=== PATIENT | male | born 1965 | race Caucasian/White ===

== ENCOUNTER 2018-01-23 23:56 | Emergency (ER) | payer OTHER ==
[2018-01-24] MEDS ORDERED: BABY ASPIRIN 81 MG CHEW PO ONE (00:10)
[2018-01-24] MEDS ORDERED: Nitrostat 0.4 MG (ED) SL ONE ×2 (00:10→01:25)
--- NOTE | 2018-01-24 00:10 | ERPHSYRPT ---
- History of Present Illness Time Seen by Provider: 01/24/18 00:07 Historian: patient, family Exam Limitations: no limitations Physician History: CABG pt with recent event in rehab and now CP tonight and right arm pain Timing/Duration: today Activities at Onset: activity Quality: pressure, throbbing, tightness Location: substernal Chest Pain Radiation: jaw, neck, arm Severity of Pain-Max: moderate Severity of Pain-Current: moderate Modifying Factors: Improves With: exertion Associated Symptoms: nausea, shortness of breath Prior Chest Pain/Cardiac Workup: heart attack, recently seen/treated, recent hospitalization Nitro Today/Relief: 0.4 mg x 1, provided by ED, no relief Aspirin Treatment Today: 81 mg x 4, provided by ED Allergies/Adverse Reactions: cephalexin [From Keflex] Allergy (Unknown, Verified 01/24/18 01:23) ciprofloxacin [From Cipro] Allergy (Unknown, Verified 01/24/18 01:23) fish oil Allergy (Unknown, Verified 01/24/18 01:23) lithium Allergy (Unknown, Verified 01/24/18 01:23) moxifloxacin [From Avelox] Allergy (Unknown, Verified 01/24/18 01:23) onion Allergy (Unknown, Verified 01/24/18 01:23) Sulfa (Sulfonamide Antibiotics) Allergy (Unknown, Verified 01/24/18 01:23) Home Medications: Alprazolam 0.5 mg [xanAX 0.5 MG] 1 tab PO TID PRN 01/24/18 [History] Aspirin [Aspir-Low] 1 tab PO DAILY 01/24/18 [History] Atorvastatin Calcium [Lipitor] 80 mg PO DAILY 01/24/18 [History] Clonidine HCl [Clonidine HCl] 1 tab PO HS 01/24/18 [History] Clopidogrel Bisulfate [Clopidogrel] 1 tab PO DAILY 01/24/18 [History] Enalapril Maleate 5 mg [Vasotec 5 MG] 1 tab PO BID 01/24/18 [History] Insulin Glargine,Hum.rec.anlog [Lantus Solostar] 30 units SQ HS 01/24/18 [ History] Insulin Glulisine [Apidra Solostar] 14 units SQ AC 01/24/18 [History] Metoprolol Succinate 100 mg [Toprol Xl 100 MG] 100 mg PO DAILY 01/24/18 [ History] Nitroglycerin [Nitroglycerin] 1 tab SL UD PRN 01/24/18 [History] Omeprazole 20 MG [Prilosec 20 mg] 1 cap PO DAILY 01/24/18 [History] Oxycodone/APAP 5 mg/325 mg [Percocet Tablet 5/325Mg] 1 tab PO DAILY [History] - Review of Systems Constitutional: No Fever, No Chills Eyes: No Symptoms Ears, Nose, & Throat: No Symptoms Respiratory: Dyspnea, No Cough Cardiac: Chest Pain, No Edema, No Syncope Abdominal/Gastrointestinal: No Abdominal Pain, No Nausea, No Vomiting, No Diarrhea Genitourinary Symptoms: No Dysuria Musculoskeletal: No Back Pain, No Neck Pain Skin: No Rash Neurological: No Dizziness, No Focal Weakness, No Sensory Changes Psychological: No Symptoms Endocrine: No Symptoms All Other Systems: Reviewed and Negative - Past Medical History Pertinent Past Medical History: Yes Cardiac History: Arrhythmia, Coronary Artery Disease, Myocardial Infarction ([place]) - Nursing Vital Signs Nursing Vital Signs: Initial Vital Signs Temperature 97.7 F 01/23/18 23:58 Pulse Rate 60 01/23/18 23:58 Respiratory Rate 17 01/23/18 23:58 Blood Pressure 145/89 01/23/18 23:58 O2 Sat by Pulse Oximetry 96 01/23/18 23:58 Pain Scale Pain Intensity 5 - Physical Exam General Appearance: no apparent distress, alert Eye Exam: PERRL/EOMI, eyes nml inspection Ears, Nose, Throat Exam: normal ENT inspection, moist mucous membranes Neck Exam: normal inspection, non-tender, supple, full range of motion Respiratory Exam: normal breath sounds, lungs clear, No respiratory distress Cardiovascular Exam: regular rate/rhythm, normal heart sounds Gastrointestinal/Abdomen Exam: soft, No tenderness, No mass Back Exam: normal inspection, No CVA tenderness, No vertebral tenderness Extremity Exam: normal inspection, normal range of motion Neurologic Exam: alert, oriented x 3, cooperative, normal mood/affect, sensation nml, No motor deficits Skin Exam: normal color, warm, dry - Course Nursing assessment & vital signs reviewed: Yes EKG Interpreted by Me: Sinus Rhythm, Sinus Ashok, NORMAL AXIS, Non-specific ST Changes - Radiology Exams Chest X-ray Interpretation: Reviewed by me, Other (prior cabg ; no significant infiltrates) Ordered Tests: Active Orders 24 hr Category Date Time Status Resident Assistant Cna STAT Care 01/24/18 00:11 Active EKG-ER Only STAT Care 01/24/18 00:10 Active IV Insertion STAT Care 01/24/18 00:10 Active Pulse Oximetry (ED) STAT Care 01/24/18 00:10 Active CHEST 1 VIEW (PORTABLE) Stat Exams 01/24/18 00:11 Taken CBC W DIFF Stat Lab 01/24/18 01:10 Completed CMP Stat Lab 01/24/18 01:10 Completed Lactic Acid Stat Lab 01/24/18 01:16 Completed Lactic Acid Stat Lab 01/24/18 04:16 Completed NT PRO BNP Stat Lab 01/24/18 01:10 Completed TROPONIN Q3H Lab 01/24/18 01:10 Completed TROPONIN Q3H Lab 01/24/18 03:40 Completed TROPONIN Q3H Lab 01/24/18 06:15 Ordered TROPONIN Q3H Lab 01/24/18 09:15 Ordered TROPONIN Q3H Lab 01/24/18 12:15 Ordered Medication Summary Generic Name Dose Route Start Last Admin Trade Name Freq PRN Reason Stop Dose Admin Sodium Chloride 1,000 mls @ 50 mls/hr 01/24/18 00:15 01/24/18 01:29 Sodium Chloride 0.9% 1000 Ml IV 02/23/18 00:14 50 mls/hr .Q20H ANG Administration Discontinued Medications Generic Name Dose Route Start Last Admin Trade Name Freq PRN Reason Stop Dose Admin Aspirin 324 mg 01/24/18 00:10 01/24/18 01:29 Baby Aspirin 81 Mg Chew PO 01/24/18 00:11 324 mg STAT ONE Administration Aspirin Confirm 01/24/18 01:25 Baby Aspirin 81 Mg Chew Administered 01/24/18 01:26 Dose 324 mg .ROUTE .STK-MED ONE Diphenhydramine HCl 25 mg 01/24/18 02:18 01/24/18 02:40 Benadryl 50 Mg/Ml IV 01/24/18 02:19 25 mg STAT ONE Administration Diphenhydramine HCl Confirm 01/24/18 02:35 Benadryl 50 Mg/Ml Administered 01/24/18 02:36 Dose 50 mg .ROUTE .STK-MED ONE Morphine Sulfate 8 mg 01/24/18 02:08 01/24/18 02:41 Morphine Sulfate 10 Mg/Ml IV 01/24/18 02:09 8 mg STAT ONE Administration Morphine Sulfate Confirm 01/24/18 02:35 Morphine Sulfate 4 Mg Inj Administered 01/24/18 02:36 Dose 8 mg .ROUTE .STK-MED ONE Nitroglycerin 0.4 mg 01/24/18 00:10 01/24/18 01:29 Nitrostat 0.4 Mg (Ed) SL 01/24/18 00:11 0.4 mg STAT ONE Administration Nitroglycerin Confirm 01/24/18 01:25 Nitrostat 0.4 Mg (Ed) Administered 01/24/18 01:26 Dose 0.4 mg SL .STK-MED ONE Ondansetron HCl 4 mg 01/24/18 02:18 01/24/18 02:41 Zofran 4 Mg/2 Ml Vial IV 01/24/18 02:19 4 mg STAT ONE Administration Ondansetron HCl Confirm 01/24/18 02:35 Zofran 4 Mg/2 Ml Vial Administered 01/24/18 02:36 Dose 4 mg .ROUTE .STK-MED ONE Lab/Rad Data: Laboratory Result Diagrams 01/24/18 01:10 01/24/18 01:10 Laboratory Results 01/24/18 01/24/18 01/24/18 Range/Units 04:16 03:40 01:16 WBC (4.0-10.5) K/mm3 RBC (4.1-5.6) M/mm3 Hgb (12.5-18.0) gm/dl Hct (42-50) % MCV (78-100) fl MCH (26-32) pg MCHC (32-36) g/dl RDW (11.5-14.0) % Plt Count (150-450) K/mm3 MPV (6-9.5) fl Gran % (36.0-66.0) % Lymphocytes % (24.0-44.0) % Monocytes % (0.0-12.0) % Eosinophils % (0.00-5.0) % Basophils % (0.0-0.4) % Basophils # (0-0.4) Sodium (137-145) mmol/L Potassium (3.5-5.1) mmol/L Chloride (98-107) mmol/L Carbon Dioxide (22-30) mmol/L Anion Gap (5-15) MEQ/L BUN (9-20) mg/dL Creatinine (0.66-1.25) mg/dL Estimated GFR ML/MIN Glucose (74-106) mg/dL Lactic Acid 1.2 2.1 H (0.4-2.0) Calcium (8.4-10.2) mg/dL Total Bilirubin (0.2-1.3) mg/dL AST (17-59) U/L ALT (0-50) U/L Alkaline Phosphatase (38-126) U/L Troponin I 0.077 H* (0.000-0.034) ng/mL NT-Pro-B Natriuret Pep (0-900) pg/mL Serum Total Protein (6.3-8.2) g/dL Albumin (3.5-5.0) g/dL 01/24/18 01/24/18 01/24/18 Range/Units 01:10 01:10 01:10 WBC 6.4 (4.0-10.5) K/mm3 RBC 4.16 (4.1-5.6) M/mm3 Hgb 11.9 L (12.5-18.0) gm/dl Hct 36.3 L (42-50) % MCV 87.3 (78-100) fl MCH 28.6 (26-32) pg MCHC 32.8 (32-36) g/dl RDW 12.4 (11.5-14.0) % Plt Count 210 (150-450) K/mm3 MPV 10.0 H (6-9.5) fl Gran % 53.1 (36.0-66.0) % Lymphocytes % 34.5 (24.0-44.0) % Monocytes % 9.1 (0.0-12.0) % Eosinophils % 3.0 (0.00-5.0) % Basophils % 0.3 (0.0-0.4) % Basophils # 0.02 (0-0.4) Sodium 141 (137-145) mmol/L Potassium 4.2 (3.5-5.1) mmol/L Chloride 104 (98-107) mmol/L Carbon Dioxide 27 (22-30) mmol/L Anion Gap 14.3 (5-15) MEQ/L BUN 14 (9-20) mg/dL Creatinine 1.14 (0.66-1.25) mg/dL Estimated GFR > 60 ML/MIN Glucose 324 H (74-106) mg/dL Lactic Acid (0.4-2.0) Calcium 9.2 (8.4-10.2) mg/dL Total Bilirubin 0.20 (0.2-1.3) mg/dL AST 13 L (17-59) U/L ALT 20 (0-50) U/L Alkaline Phosphatase 75 (38-126) U/L Troponin I < 0.012 (0.000-0.034) ng/mL NT-Pro-B Natriuret Pep 545 (0-900) pg/mL Serum Total Protein 6.9 (6.3-8.2) g/dL Albumin 3.7 (3.5-5.0) g/dL - Progress Progress: improved, re-examined Air Movement: good Progress Note: 01/24/18 04:40 pt was declined by [facility] due to being full; [facility] called back then , but more time was lost since they called during a procedure on another pt; recalled [facility] transfer center to request expedite since pt now has positive trops; 01/24/18 04:55 Dr aleman at [facility] accepted pt; and is aware of positive trops Blood Culture(s) Obtained: No Antibiotics given: No Discussed with : Other (dr aleman [facility]) Will see patient in: hospital (full admit) Counseled pt/family regarding: lab results, diagnosis, need for follow-up, rad results - Departure Time of Disposition: 04:55 Departure Disposition: Transfer Clinical Impression: Non-STEMI (non-ST elevated myocardial infarction) Condition: Good Critical Care Time: No Referrals: MAGEN WAKEFIELD MD [Primary Care Provider] -
[2018-01-24] MEDS ORDERED: Sodium Chloride 0.9% 1000 ML 1,000 ML IV SCH (00:15)
[2018-01-24] MEDS ORDERED: BABY ASPIRIN 81 MG CHEW ONE (01:25)
[2018-01-24] MEDS ORDERED: Sodium Chloride 0.9% 1000 ML 1,000 ML ONE (01:26)
[2018-01-24 01:27] LABS: Lactic Acid 2.1 (0.4-2.0)
[2018-01-24 01:36] LABS: BASOPHIL % 0.3 % (0.0-0.4); Basophil (Absolute #) 0.02 (0-0.4); Eosinophil (Absolute #) 0.19 (0-0.5); Granulocyte Absolute (ANC) 3.37 (1.4-6.9); Granulocytes % 53.1 % (36.0-66.0); Hematocrit 36.3 % (42-50); Hemoglobin 11.9 gm/dl (12.5-18.0); Lymphocyte (Absolute #) 2.19 (1.0-4.6); Lymphocytes % 34.5 % (24.0-44.0); Mean Cell Volume 87.3 fl (78-100); Mean Corpuscular Hemoglobin 28.6 pg (26-32); Mean Corpuscular Hgb Concent. 32.8 g/dl (32-36); Monocyte (Absolute #) 0.58 (0.0-1.3); Monocytes % 9.1 % (0.0-12.0); Platelet Count 210 K/mm3 (150-450); Red Blood Count 4.16 M/mm3 (4.1-5.6); Red Cell Distribution Width 12.4 % (11.5-14.0); White Blood Count 6.4 K/mm3 (4.0-10.5)
[2018-01-24 02:00] LABS: ALBUMIN 3.7 g/dL (3.5-5.0); ALKALINE PHOSPHATASE 75 U/L (38-126); ANION GAP 14.3 MEQ/L (5-15); BLOOD UREA NITROGEN 14 mg/dL (9-20); CHLORIDE 104 mmol/L (98-107); Calcium 9.2 mg/dL (8.4-10.2); Carbon Dioxide 27 mmol/L (22-30); Creatinine 1 1.14 mg/dL (0.66-1.25); Glucose 324 mg/dL (74-106); Potassium 4.2 mmol/L (3.5-5.1); SGOT/AST 13 U/L (17-59); SGPT/ALT 20 U/L (0-50); SODIUM 141 mmol/L (137-145); Total Protein 6.9 g/dL (6.3-8.2)
[2018-01-24 02:07] LABS: NT PRO BNP 545 pg/mL (0-900)
[2018-01-24] MEDS ORDERED: MORPHINE SULFATE 10 MG/ML IV ONE (02:08)
[2018-01-24] MEDS ORDERED: BENADRYL 50 MG/ML IV ONE (02:18)
[2018-01-24] MEDS ORDERED: Zofran 4 MG/2 ML VIAL IV ONE (02:18)
[2018-01-24] MEDS ORDERED: Zofran 4 MG/2 ML VIAL ONE (02:35)
[2018-01-24] MEDS ORDERED: MORPHINE SULFATE 4 MG INJ ONE (02:35)
[2018-01-24] MEDS ORDERED: BENADRYL 50 MG/ML ONE (02:35)
[2018-01-24 08:05] VITALS: BP 102/68; PULSE 52; O2SAT 98
--- NOTE | 2018-01-24 10:00 | XRAY ---
Indication: Chest pain. Comparison: None Portable chest demonstrates left hilar irregular opacity partially obscured by cardiac silhouette. Heart is not enlarged and demonstrates previous CABG surgery. Left midlung peripheral fibrosis/scarring. Right lung clear. Bony thorax intact with mild spinal degenerative changes. Impression: Left hilar irregular opacity either postoperative versus mass. Comparison studies would be of benefit. If not available, CT chest with contrast exam may yield further information.
== END 2018-01-24 08:00 | disposition short-term general hospital (02) ==
LOC: ED 23:56
DX: I21.4 Non-ST elevation (NSTEMI) myocardial infarction (principal); Z79.899 Other long term (current) drug therapy; Z95.1 Presence of aortocoronary bypass graft; I25.2 Old myocardial infarction
CPT/HCPCS: 36000; 36415; 71045; 80053; 83605; 83880; 84484; 85025; 93005; 93041; 96360; 96374; 96375; 99285; J1200; J2270; J2405; A9270-GY

== ENCOUNTER 2018-06-20 20:41 | Emergency (ER) | payer OTHER ==
--- NOTE | 2018-06-20 20:56 | ERPHSYRPT ---
- History of Present Illness Time Seen by Provider: 06/20/18 20:55 Source: patient, family Physician History: 53 y/ morbidly obese, diabetic white male with sig cardiac hx including 9 cardiac stents and a 4 vessel cabg presents with soa. pt denies cp. pt feels his sx of soa has been worsening over a few weeks. he started brilenta a month ago and since then his sx began. sx worsening over last week. pt denies abd pain , denies n/v/d Timing/Duration: week(s) (approx 3 weeks) Severity of Dyspnea-Max: moderate Severity of Dyspnea-Current: mild Possible Cause: occasional episodes Modifying Factors: Improves With: activity (worsens) Associated Symptoms: intermittent, No anxiety, No cough, No chest pain/ discomfort, No lightheadedness, No wheezing, No weakness, No dizziness, No heaviness Allergies/Adverse Reactions: Fish Containing Products Allergy (Severe, Verified 06/20/18 21:06) Shortness of Breath fish protein causes swelling and SOB moxifloxacin HCl [From Avelox] Allergy (Intermediate, Verified 06/20/18 21:06) Hives cephalexin [From Keflex] Allergy (Unknown, Verified 06/20/18 21:06) ciprofloxacin [From Cipro] Allergy (Unknown, Verified 06/20/18 21:06) fish oil Allergy (Unknown, Verified 06/20/18 21:06) lithium Allergy (Unknown, Verified 06/20/18 21:06) moxifloxacin [From Avelox] Allergy (Unknown, Verified 06/20/18 21:06) onion Allergy (Unknown, Verified 06/20/18 21:06) Sulfa (Sulfonamide Antibiotics) Allergy (Unknown, Verified 06/20/18 21:06) Home Medications: Aspirin 81 mg PO DAILY 10/28/17 [History] Atorvastatin Calcium [Lipitor] 80 mg PO DAILY 10/28/17 [History] Clonidine HCl 0.1 mg [Catapres 0.1 MG] 0.2 mg PO HS 10/28/17 [History] Enalapril Maleate [Vasotec] 10 mg PO BID 10/28/17 [History] Insulin Glargine,Hum.rec.anlog [Lantus] 30 unit SQ HS 10/28/17 [History] Nitroglycerin 0.4 mg Tablet [Nitrostat 0.4 MG Tablet] 0.4 mg SL UD [History] Insulin Glulisine [Apidra Solostar] 14 - 17 units SQ TID 01/24/18 [History] Metoprolol Succinate 100 mg [Toprol Xl 100 MG] 50 mg PO DAILY 01/24/18 [ History] Oxycodone/APAP 5 mg/325 mg [Percocet Tablet 5/325Mg] 1 tab PO BID 01/24/18 [History] Amlodipine Besylate [Norvasc] 5 mg PO DAILY 03/28/18 [History] Ezetimibe 10 mg [Zetia 10 MG] 10 mg PO DAILY 03/28/18 [History] Omeprazole 20 MG [Prilosec 20 mg] 20 mg PO BID 03/28/18 [History] Ranolazine 500 MG [Ranexa 500 MG] 500 mg PO BID 03/28/18 [History] Atorvastatin Calcium [Lipitor] 80 mg PO DAILY 06/20/18 [History] Clonazepam 0.5 mg PO QAM 06/20/18 [History] Isosorbide Mononitrate 60 mg [Imdur 60MG] 60 mg PO DAILY 06/20/18 [History] Ticagrelor [Brilinta] 90 mg PO BID 06/20/18 [History] Hx Tetanus, Diphtheria Vaccination/Date Given: (2010) Hx Influenza Vaccination/Date Given: No Hx Pneumococcal Vaccination/Date Given: Yes - Review of Systems Constitutional: No Symptoms Eyes: No Symptoms, No Discharge, No Eye Pain, No Photophobia Ears, Nose, & Throat: No Symptoms, No Ear Pain Respiratory: Dyspnea, No Cough, No Stridor, No Wheezing Cardiac: No Chest Pain, No Palpitations, No Syncope Abdominal/Gastrointestinal: No Symptoms, Abdominal Pain, Nausea, Vomiting, Diarrhea Genitourinary Symptoms: No Symptoms, No Dysuria, No Frequency, No Hematuria Musculoskeletal: No Symptoms, Fall, Injury (right hip. xray performed earlier today. neg for acute pathology), No Arthralgias Skin: No Symptoms Neurological: No Symptoms, No Dizziness, No Headache Psychological: No Symptoms, No Alcohol Abuse, No Drug Abuse, No Anxiety, No Depression Endocrine: No Symptoms Hematologic/Lymphatic: No Symptoms Immunological/Allergic: No Symptoms All Other Systems: Reviewed and Negative - Past Medical History Pertinent Past Medical History: Yes Neurological History: Migraines ENT History: Macular Degeneration Cardiac History: Angina, Arrhythmia, Coronary Artery Disease, Myocardial Infarction ([place]), High Cholesterol, Hypertension Respiratory History: Sleep Apnea, COPD, Asthma, Bronchitis Endocrine Medical History: Diabetes Type II, Liver Disease Musculoskeletal History: Osteoarthritis, Degenerative Disk Disease, Fibromyalgia GI Medical History: Diverticulitis, Ulcer, GERD, Pancreatitis, Gallbladder Disease History: No Pertinent History Psycho-Social History: No Pertinent History Male Reproductive Disorders: No Pertinent History Other Medical History: fibromyalgia - Past Surgical History Past Surgical History: Yes Neuro Surgical History: No Pertinent History Cardiac: CABG, Cardiac Stent, Cardiac Catheterization Respiratory: Other Gastrointestinal: No Pertinent History Genitourinary: No Pertinent History Musculoskeletal: Orthopedic Surgery, Amputation Male Surgical History: No Pertinent History Other Surgical History: Rt knee, left ankle reconstructed - Social History Smoking Status: Former smoker How long have you smoked: 20 years Exposure to second hand smoke: Yes Alcohol Use: Socially Drug Use: none Patient Lives Alone: No Significant Family History: no pertinent family hx - Nursing Vital Signs Nursing Vital Signs: Initial Vital Signs Temperature 97.5 F 06/20/18 20:47 Pulse Rate 56 L 06/20/18 20:47 Respiratory Rate 18 06/20/18 20:47 Blood Pressure 110/72 06/20/18 20:47 O2 Sat by Pulse Oximetry 97 06/20/18 20:47 Pain Scale Pain Intensity 0 - Physical Exam General Appearance: mild distress, alert Eye Exam: PERRL/EOMI, No eyes nml inspection Ears, Nose, Throat Exam: hearing grossly normal, normal ENT inspection Neck Exam: normal inspection, non-tender, supple, full range of motion Respiratory Exam: normal breath sounds, lungs clear, airway intact, No chest tenderness, No respiratory distress, No diminished breath sounds, No accessory muscle use, No rhonchi, No wheezing, No stridor Cardiovascular/Chest Exam: normal heart sounds, regular rate/rhythm, normal peripheral pulses Abdominal/Gastrointestinal Exam: soft, normal bowel sounds, hernia (reducible umbilical), No tenderness, No guarding, No rebound Rectal Exam: not done Extremity Exam: non-tender, normal range of motion, normal inspection, pelvis stable Neurologic Exam: alert, oriented x 3, cooperative, medical assistant prn II-XII nml as tested, normal mood/affect Skin Exam: normal color, warm, dry Lymphatic Exam: No adenopathy SpO2 Interpretation: normal Oxygen Delivery: Room Air - Course Nursing assessment & vital signs reviewed: Yes EKG Interpreted by Me: RATE, Sinus Rhythm, NORMAL INTERVALS, NORMAL QRS, NORMAL ST-T, Other (s1/qiii axis) Ordered Tests: Active Orders 24 hr Category Date Time Status EKG-ER Only STAT Care 06/20/18 20:56 Active IV Insertion STAT Care 06/20/18 20:56 Active CHEST 1 VIEW (PORTABLE) Stat Exams 06/20/18 20:56 Taken CBC W DIFF Stat Lab 06/20/18 21:00 Completed CMP Stat Lab 06/20/18 21:00 Received D-DIMER QUANTITATION Stat Lab 06/20/18 21:00 Received NT PRO BNP Stat Lab 06/20/18 21:00 Received PROTIME WITH INR Stat Lab 06/20/18 21:00 Received TROPONIN Q3H Lab 06/20/18 21:00 Received TROPONIN Q3H Lab 06/21/18 00:00 Ordered TROPONIN Q3H Lab 06/21/18 03:00 Ordered TROPONIN Q3H Lab 06/21/18 06:00 Ordered TROPONIN Q3H Lab 06/21/18 09:00 Ordered Lab/Rad Data: Laboratory Result Diagrams 06/20/18 21:00 Laboratory Results 06/20/18 Range/Units 21:00 WBC 7.3 (4.0-10.5) K/mm3 RBC 4.11 (4.1-5.6) M/mm3 Hgb 12.4 L (12.5-18.0) gm/dl Hct 36.0 L (42-50) % MCV 87.6 (78-100) fl MCH 30.1 (26-32) pg MCHC 34.4 (32-36) g/dl RDW 13.5 (11.5-14.0) % Plt Count 228 (150-450) K/mm3 MPV 9.4 (6-9.5) fl Gran % 52.1 (36.0-66.0) % Eos # (Auto) 0.17 (0-0.5) Absolute Lymphs (auto) 2.65 (1.0-4.6) Absolute Monos (auto) 0.64 (0.0-1.3) Lymphocytes % 36.5 (24.0-44.0) % Monocytes % 8.8 (0.0-12.0) % Eosinophils % 2.3 (0.00-5.0) % Basophils % 0.3 (0.0-0.4) % Absolute Granulocytes 3.78 (1.4-6.9) Basophils # 0.02 (0-0.4) - Progress Progress: improved, re-examined Air Movement: good Progress Note: 06/20/18 21:48 pt has no cp. i reviewed all lab, ekg and cxr results with him. cxr-no acute process; pt with cardiomegaly Blood Culture(s) Obtained: No Antibiotics given: No Counseled pt/family regarding: lab results, diagnosis, need for follow-up, rad results - Departure Time of Disposition: 21:52 Departure Disposition: Home Clinical Impression: Shortness of breath, Medication adverse effect Condition: Stable Critical Care Time: No Referrals: MAGEN WAKEFIELD MD [Primary Care Provider] - Additional Instructions: hold brilinta until you discuss with your prescribing physician. take your other meds as prescribed. return to ER if symptoms worsen
[2018-06-20 21:05] VITALS: BP 110/72; PULSE 56; O2SAT 97
[2018-06-20 21:07] LABS: BASOPHIL % 0.3 % (0.0-0.4); Basophil (Absolute #) 0.02 (0-0.4); Eosinophil % 2.3 % (0.00-5.0); Eosinophil (Absolute #) 0.17 (0-0.5); Granulocyte Absolute (ANC) 3.78 (1.4-6.9); Granulocytes % 52.1 % (36.0-66.0); Hemoglobin 12.4 gm/dl (12.5-18.0); Lymphocyte (Absolute #) 2.65 (1.0-4.6); Lymphocytes % 36.5 % (24.0-44.0); Mean Cell Volume 87.6 fl (78-100); Mean Corpuscular Hgb Concent. 34.4 g/dl (32-36); Mean Platelet Volume 9.4 fl (6-9.5); Monocyte (Absolute #) 0.64 (0.0-1.3); Monocytes % 8.8 % (0.0-12.0); Platelet Count 228 K/mm3 (150-450); Red Blood Count 4.11 M/mm3 (4.1-5.6); Red Cell Distribution Width 13.5 % (11.5-14.0); White Blood Count 7.3 K/mm3 (4.0-10.5)
[2018-06-20 21:10] LABS: Mean Corpuscular Hemoglobin 30.1 pg (26-32)
[2018-06-20 21:26] LABS: INR 0.99 (0.8-3.0)
[2018-06-20 21:39] LABS: ALBUMIN 4.1 g/dL (3.5-5.0); ALKALINE PHOSPHATASE 78 U/L (38-126); ANION GAP 14.4 MEQ/L (5-15); BLOOD UREA NITROGEN 21 mg/dL (9-20); CHLORIDE 104 mmol/L (98-107); Calcium 8.8 mg/dL (8.4-10.2); Carbon Dioxide 23 mmol/L (22-30); Glucose 308 mg/dL (74-106); NT PRO BNP 117 pg/mL (0-900); Potassium 4.5 mmol/L (3.5-5.1); SGOT/AST 16 U/L (17-59); SGPT/ALT 22 U/L (0-50); SODIUM 137 mmol/L (137-145); Total Protein 6.8 g/dL (6.3-8.2)
[2018-06-20] MEDS ORDERED: MORPHINE SULFATE 2 MG INJ ONE (22:01)
[2018-06-20] MEDS: MORPHINE SULFATE 2 MG INJ IV ONE (22:05)
--- NOTE | 2018-06-21 08:41 | XRAY ---
Indication: Short of breath. Comparison: January 24, 2018. Portable apical lordotic chest again demonstrates left perihilar irregular opacity. There is right mid peripheral nodule partially obscured previously by monitoring clip/lead but grossly unchanged compared to older exam of April 19, 2014 and favored to be benign given stability over the years. Remaining lungs clear. Heart is not enlarged again demonstrating CABG surgery. Bony thorax intact again with mild spinal degenerative changes. Impression: Stable left hilar irregular opacity again either postoperative versus mass. Again CT chest may yield further information if clinically warranted. Stable benign right mid lung nodule.
== END 2018-06-20 22:06 | disposition home or self-care (01) ==
LOC: ED 20:41
DX: R06.02 Shortness of breath (principal); T45.515A Adverse effect of anticoagulants, initial encounter; I51.7 Cardiomegaly; Z79.82 Long term (current) use of aspirin; Z79.899 Other long term (current) drug therapy; E11.9 Type 2 diabetes mellitus without complications; Z79.4 Long term (current) use of insulin
CPT/HCPCS: 36000; 36415; 71045; 73502; 80053; 83880; 84484; 85025; 85379; 85610; 93005; 96374; 99284; J2270

== ENCOUNTER 2018-08-29 18:54 | Observation (INO) | payer OTHER ==
[2018-08-29 19:31] LABS: BASOPHIL % 0.3 % (0.0-0.4); Basophil (Absolute #) 0.02 (0-0.4); Eosinophil % 2.8 % (0.00-5.0); Eosinophil (Absolute #) 0.19 (0-0.5); Granulocyte Absolute (ANC) 3.42 (1.4-6.9); Granulocytes % 49.8 % (36.0-66.0); Hematocrit 37.6 % (42-50); Hemoglobin 12.6 gm/dl (12.5-18.0); Lymphocyte (Absolute #) 2.55 (1.0-4.6); Lymphocytes % 37.1 % (24.0-44.0); Mean Cell Volume 88.5 fl (78-100); Mean Corpuscular Hemoglobin 29.6 pg (26-32); Mean Corpuscular Hgb Concent. 33.5 g/dl (32-36); Mean Platelet Volume 9.6 fl (6-9.5); Monocyte (Absolute #) 0.69 (0.0-1.3); Platelet Count 206 K/mm3 (150-450); Red Blood Count 4.25 M/mm3 (4.1-5.6); Red Cell Distribution Width 12.5 % (11.5-14.0); White Blood Count 6.9 K/mm3 (4.0-10.5)
--- NOTE | 2018-08-29 19:34 | ERPHSYRPT ---
- History of Present Illness Time Seen by Provider: 08/29/18 19:21 Historian: patient Exam Limitations: no limitations Patient Subjective Stated Complaint: pt here for chest pressure today with nausea,vomiting off and on, fever for a week. he states he has beren under a lot of stress lately Triage Nursing Assessment: pt alert, resp easy, skin w/d/p. no edema, chest clear, cough - productive clear. and soft, Physician History: This is a 53-year-old white male with history of migraines, macular degeneration , arrhythmia, coronary artery disease, myocardial infarction, hypothyroidism, high blood pressure, COPD, asthma, diabetes type 2, degenerative disc disease and fibromyalgia. Patient arrives with complaint of substernal chest pain described as a pressure occurring at 5:30 PM radiating down his left arm associated nausea, patient states she has had similar symptoms off and on for a week he states that he's had a clear cough he's had a fever off-and-on he was seen by his family doctor today Patient states that he took 81 mg of aspirin this morning also Plavix he states he has been instructed by his family doctor that he is not to take additional aspirin if he has chest pain when he presents to emergency room. Patient did state that he took one nitroglycerin today just prior to arrival Past medical history includes migraines, macular degeneration, arrhythmia, coronary artery disease, myocardial infarction, hypothyroidism, high blood pressure, sleep apnea, COPD, asthma, bronchitis, diabetes type 2, liver disease , osteoarthritis, degenerative disc disease, fibromyalgia, diverticulitis, ulcers, GERD, pancreatitis, gallbladder disease Past surgical history includes cardiac stents, cardiac catheter, amputation, right knee and left ankle reconstruction Social history former smoker Timing/Duration: other (cough intermittent chest pain times one week substernal pressure nausea since 5:30) Quality: pressure Location: substernal Chest Pain Radiation: arm (left arm) Severity of Pain-Max: moderate Severity of Pain-Current: mild Modifying Factors: Improves With: other (patient took one nitroglycerine) Associated Symptoms: nausea, shortness of breath, cough, fever (Fever off-and-on ), No vomiting, No palpitations, No hurts to breathe, No diaphoresis, No chills Prior Chest Pain/Cardiac Workup: cardiac cath Nitro Today/Relief: 0.4 mg x 1 Aspirin Treatment Today: 81 mg x 1 (patient states he is told by his giant tire repairer he is not to take more aspirin when he presents to the emergency room) Allergies/Adverse Reactions: Fish Containing Products Allergy (Severe, Verified 06/20/18 21:06) Shortness of Breath fish protein causes swelling and SOB moxifloxacin HCl [From Avelox] Allergy (Intermediate, Verified 06/20/18 21:06) Hives cephalexin [From Keflex] Allergy (Unknown, Verified 06/20/18 21:06) ciprofloxacin [From Cipro] Allergy (Unknown, Verified 06/20/18 21:06) fish oil Allergy (Unknown, Verified 06/20/18 21:06) lithium Allergy (Unknown, Verified 06/20/18 21:06) moxifloxacin [From Avelox] Allergy (Unknown, Verified 06/20/18 21:06) onion Allergy (Unknown, Verified 06/20/18 21:06) Sulfa (Sulfonamide Antibiotics) Allergy (Unknown, Verified 06/20/18 21:06) Home Medications: Aspirin 81 mg PO DAILY 10/28/17 [History] Clonidine HCl 0.1 mg [Catapres 0.1 MG] 0.2 mg PO HS 10/28/17 [History] Enalapril Maleate [Vasotec] 10 mg PO BID 10/28/17 [History] Insulin Glargine,Hum.rec.anlog [Lantus] 30 unit SQ HS 10/28/17 [History] Nitroglycerin 0.4 mg Tablet [Nitrostat 0.4 MG Tablet] 0.4 mg SL UD [History] Insulin Glulisine [Apidra Solostar] 14 - 17 units SQ TID 01/24/18 [History] Metoprolol Succinate 100 mg [Toprol Xl 100 MG] 50 mg PO DAILY 01/24/18 [ History] Oxycodone/APAP 5 mg/325 mg [Percocet Tablet 5/325Mg] 1 tab PO BID 01/24/18 [History] Ezetimibe 10 mg [Zetia 10 MG] 10 mg PO DAILY 03/28/18 [History] Omeprazole 20 MG [Prilosec 20 mg] 20 mg PO BID 03/28/18 [History] Ranolazine 500 MG [Ranexa 500 MG] 500 mg PO BID 03/28/18 [History] Atorvastatin Calcium [Lipitor] 80 mg PO DAILY 06/20/18 [History] Clonazepam 0.5 mg PO QAM 06/20/18 [History] Isosorbide Mononitrate 60 mg [Imdur 60MG] 60 mg PO DAILY 06/20/18 [History] Hx Tetanus, Diphtheria Vaccination/Date Given: (2010) Hx Influenza Vaccination/Date Given: No Hx Pneumococcal Vaccination/Date Given: No Immunizations Up to Date: Yes - Review of Systems Constitutional: No Fever, No Chills Eyes: No Symptoms Ears, Nose, & Throat: No Symptoms Respiratory: Cough, Dyspnea, No Wheezing Cardiac: Chest Pain Abdominal/Gastrointestinal: Nausea, No Abdominal Pain, No Vomiting, No Diarrhea Genitourinary Symptoms: No Dysuria Musculoskeletal: No Back Pain, No Neck Pain Skin: No Rash Neurological: No Dizziness, No Focal Weakness, No Sensory Changes Psychological: No Symptoms Endocrine: No Symptoms All Other Systems: Reviewed and Negative - Past Medical History Pertinent Past Medical History: Yes Neurological History: Migraines ENT History: Macular Degeneration Cardiac History: Angina, Arrhythmia, Coronary Artery Disease, Myocardial Infarction ([place]), High Cholesterol, Hypertension Respiratory History: Sleep Apnea, COPD, Asthma, Bronchitis Endocrine Medical History: Diabetes Type II, Liver Disease Musculoskeletal History: Osteoarthritis, Degenerative Disk Disease, Fibromyalgia GI Medical History: Diverticulitis, Ulcer, GERD, Pancreatitis, Gallbladder Disease History: No Pertinent History Psycho-Social History: No Pertinent History Male Reproductive Disorders: No Pertinent History Other Medical History: fibromyalgia - Past Surgical History Past Surgical History: Yes Neuro Surgical History: No Pertinent History Cardiac: CABG, Cardiac Stent, Cardiac Catheterization Respiratory: Other Gastrointestinal: No Pertinent History Genitourinary: No Pertinent History Musculoskeletal: Orthopedic Surgery, Amputation Male Surgical History: No Pertinent History Other Surgical History: Rt knee, left ankle reconstructed - Social History Smoking Status: Current some day smoker How long have you smoked: 20 years Exposure to second hand smoke: Yes Alcohol Use: Socially Drug Use: none Patient Lives Alone: No Significant Family History: no pertinent family hx - Nursing Vital Signs Nursing Vital Signs: Initial Vital Signs Temperature 97.1 F 08/29/18 19:00 Pulse Rate 59 L 08/29/18 19:00 Respiratory Rate 18 08/29/18 19:00 Blood Pressure 163/93 08/29/18 19:00 O2 Sat by Pulse Oximetry 98 08/29/18 19:00 Pain Scale Pain Intensity 5 - Physical Exam General Appearance: no apparent distress, alert, obese Eye Exam: PERRL/EOMI, eyes nml inspection Ears, Nose, Throat Exam: normal ENT inspection, moist mucous membranes Neck Exam: normal inspection, non-tender, supple, full range of motion Respiratory Exam: normal breath sounds, lungs clear, No respiratory distress Cardiovascular Exam: regular rate/rhythm, normal heart sounds Gastrointestinal/Abdomen Exam: soft, No tenderness, No mass Back Exam: normal inspection, No CVA tenderness, No vertebral tenderness Extremity Exam: normal inspection, normal range of motion Neurologic Exam: alert, oriented x 3, cooperative, email specialist II-XII nml as tested, normal mood/affect, sensation nml, No motor deficits Skin Exam: normal color, warm, dry SpO2 Interpretation: normal (98%) SpO2: 98 Oxygen Delivery: Room Air - Course Nursing assessment & vital signs reviewed: Yes EKG Interpreted by Me: RATE (58 bpm), Other (EKG: Sinus rhythm, 58 bpm, axisSI/ QIII pattern, nonspecific ST and T-wave abnormalities, no acute changes as compared to June 20, 2018) Ordered Tests: Active Orders 24 hr Category Date Time Status Accucheck STAT Care 08/29/18 19:26 Active Industrial Methods Consultant STAT Care 08/29/18 19:25 Active EKG-ER Only STAT Care 08/29/18 19:25 Active Pulse Oximetry (ED) STAT Care 08/29/18 19:25 Active CHEST 1 VIEW (PORTABLE) Stat Exams 08/29/18 19:25 Taken AMYLASE Stat Lab 08/29/18 19:10 Completed CBC W DIFF Stat Lab 08/29/18 19:10 Completed CMP Stat Lab 08/29/18 19:10 Completed D-DIMER QUANTITATION Stat Lab 08/29/18 19:10 Completed LIPASE Stat Lab 08/29/18 19:10 Completed NT PRO BNP Stat Lab 08/29/18 19:10 Completed PROTIME WITH INR Stat Lab 08/29/18 19:10 Completed PTT Stat Lab 08/29/18 19:10 Completed TROPONIN Q3H Lab 08/29/18 19:10 Completed TROPONIN Q3H Lab 08/29/18 22:30 Ordered TROPONIN Q3H Lab 08/30/18 01:30 Ordered TROPONIN Q3H Lab 08/30/18 04:30 Ordered TROPONIN Q3H Lab 08/30/18 07:30 Ordered Lab/Rad Data: Laboratory Result Diagrams 08/29/18 19:10 08/29/18 19:10 Laboratory Results 08/29/18 08/29/18 08/29/18 Range/Units 19:10 19:10 19:10 WBC (4.0-10.5) K/mm3 RBC (4.1-5.6) M/mm3 Hgb (12.5-18.0) gm/dl Hct (42-50) % MCV (78-100) fl MCH (26-32) pg MCHC (32-36) g/dl RDW (11.5-14.0) % Plt Count (150-450) K/mm3 MPV (6-9.5) fl Gran % (36.0-66.0) % Eos # (Auto) (0-0.5) Absolute Lymphs (auto) (1.0-4.6) Absolute Monos (auto) (0.0-1.3) Lymphocytes % (24.0-44.0) % Monocytes % (0.0-12.0) % Eosinophils % (0.00-5.0) % Basophils % (0.0-0.4) % Absolute Granulocytes (1.4-6.9) Basophils # (0-0.4) PT 11.4 (8.83-12.87) SECONDS INR 0.98 (0.8-3.0) APTT 24.0 L (24.1-36.1) SECONDS D-Dimer 456 (215-500) ng/mL Sodium (137-145) mmol/L Potassium (3.5-5.1) mmol/L Chloride (98-107) mmol/L Carbon Dioxide (22-30) mmol/L Anion Gap (5-15) MEQ/L BUN (9-20) mg/dL Creatinine (0.66-1.25) mg/dL Estimated GFR ML/MIN Glucose (74-106) mg/dL Calcium (8.4-10.2) mg/dL Total Bilirubin (0.2-1.3) mg/dL AST (17-59) U/L ALT (0-50) U/L Alkaline Phosphatase (38-126) U/L Troponin I < 0.012 (0.000-0.034) ng/mL NT-Pro-B Natriuret Pep (0-900) pg/mL Serum Total Protein (6.3-8.2) g/dL Albumin (3.5-5.0) g/dL Amylase < 30 L (30-110) U/L Lipase 70 (23-300) U/L 08/29/18 08/29/18 Range/Units 19:10 19:10 WBC 6.9 (4.0-10.5) K/mm3 RBC 4.25 (4.1-5.6) M/mm3 Hgb 12.6 (12.5-18.0) gm/dl Hct 37.6 L (42-50) % MCV 88.5 (78-100) fl MCH 29.6 (26-32) pg MCHC 33.5 (32-36) g/dl RDW 12.5 (11.5-14.0) % Plt Count 206 (150-450) K/mm3 MPV 9.6 H (6-9.5) fl Gran % 49.8 (36.0-66.0) % Eos # (Auto) 0.19 (0-0.5) Absolute Lymphs (auto) 2.55 (1.0-4.6) Absolute Monos (auto) 0.69 (0.0-1.3) Lymphocytes % 37.1 (24.0-44.0) % Monocytes % 10.0 (0.0-12.0) % Eosinophils % 2.8 (0.00-5.0) % Basophils % 0.3 (0.0-0.4) % Absolute Granulocytes 3.42 (1.4-6.9) Basophils # 0.02 (0-0.4) PT (8.83-12.87) SECONDS INR (0.8-3.0) APTT (24.1-36.1) SECONDS D-Dimer (215-500) ng/mL Sodium 137 (137-145) mmol/L Potassium 4.4 (3.5-5.1) mmol/L Chloride 105 (98-107) mmol/L Carbon Dioxide 25 (22-30) mmol/L Anion Gap 12.0 (5-15) MEQ/L BUN 14 (9-20) mg/dL Creatinine 1.11 (0.66-1.25) mg/dL Estimated GFR > 60.0 ML/MIN Glucose 259 H (74-106) mg/dL Calcium 9.2 (8.4-10.2) mg/dL Total Bilirubin 0.20 (0.2-1.3) mg/dL AST 17 (17-59) U/L ALT 20 (0-50) U/L Alkaline Phosphatase 75 (38-126) U/L Troponin I (0.000-0.034) ng/mL NT-Pro-B Natriuret Pep 230 (0-900) pg/mL Serum Total Protein 6.7 (6.3-8.2) g/dL Albumin 3.8 (3.5-5.0) g/dL Amylase (30-110) U/L Lipase (23-300) U/L - Progress Progress: improved Air Movement: fair Progress Note: 08/29/18 20:5 08/29/18 20:59 53-year-old white male arrives with complaint of pain in his anterior chest radiating to his left arm symptoms since 5:30. Patient without acute changes on EKG labs or chest x-ray. Patient does not one aspirin at this time wants to stay here in the emergency room the second transfer tech. 08/29/18 21:49 Patient has no acute changes on his EKG labs are essentially normal troponin normal D dimer normal chest x-ray no acute changes. He does have some continuing intermittent anterior chest pain. I had considered placing the patient on nitroglycerin paste. I patient tells me he has been instructed by his giant tire repairer he is not to get additional aspirin he is already on aspirin and Plavix. The patient states he wants to stay at [place]. I've discussed the case with Dr. Uriarte he is okay with the placing the patient on observation with serial troponins and Accu-Cheks. He did ask that I discussed the case with the physician on-call for Dr. Klein.I discussed the case with Dr. Loredo he is agreeable to having the patient come in this hospital for observation and obtaining serial troponins. Will go ahead and write orders - Departure Time of Disposition: 21:51 Departure Disposition: Observation Clinical Impression: Chest pain Qualifiers: Chest pain type: unspecified Qualified Code(s): R07.9 - Chest pain, unspecified Condition: Fair Critical Care Time: No Referrals: MAGEN WAKEFIELD MD [Primary Care Provider] -
[2018-08-29 19:48] LABS: INR 0.98 (0.8-3.0)
[2018-08-29 19:52] LABS: AMYLASE < 30 U/L (30-110); LIPASE 70 U/L (23-300)
[2018-08-29 20:02] LABS: ALBUMIN 3.8 g/dL (3.5-5.0); ALKALINE PHOSPHATASE 75 U/L (38-126); BLOOD UREA NITROGEN 14 mg/dL (9-20); CHLORIDE 105 mmol/L (98-107); Calcium 9.2 mg/dL (8.4-10.2); Carbon Dioxide 25 mmol/L (22-30); Creatinine 1 1.11 mg/dL (0.66-1.25); Glucose 259 mg/dL (74-106); NT PRO BNP 230 pg/mL (0-900); Potassium 4.4 mmol/L (3.5-5.1); SGOT/AST 17 U/L (17-59); SGPT/ALT 20 U/L (0-50); SODIUM 137 mmol/L (137-145); Total Protein 6.7 g/dL (6.3-8.2)
[2018-08-29] MEDS ORDERED: NovoLOG Insulin SQ PRN (22:40)
[2018-08-29] MEDS ORDERED: TYLENOL 325 MG PO PRN (22:40)
[2018-08-29] MEDS ORDERED: PERCOCET TABLET 5/325MG PO ONE (22:42)
[2018-08-30] MEDS ORDERED: Lantus Insulin ONE (00:41)
[2018-08-30 05:32] LABS: BASOPHIL % 0.2 % (0.0-0.4); Basophil (Absolute #) 0.01 (0-0.4); Eosinophil % 2.4 % (0.00-5.0); Eosinophil (Absolute #) 0.15 (0-0.5); Granulocytes % 36.4 % (36.0-66.0); Hematocrit 37.4 % (42-50); Hemoglobin 12.5 gm/dl (12.5-18.0); Lymphocyte (Absolute #) 3.27 (1.0-4.6); Lymphocytes % 51.7 % (24.0-44.0); Mean Cell Volume 88.8 fl (78-100); Mean Corpuscular Hemoglobin 29.7 pg (26-32); Mean Corpuscular Hgb Concent. 33.4 g/dl (32-36); Mean Platelet Volume 9.9 fl (6-9.5); Monocyte (Absolute #) 0.59 (0.0-1.3); Monocytes % 9.3 % (0.0-12.0); Platelet Count 191 K/mm3 (150-450); Red Blood Count 4.21 M/mm3 (4.1-5.6); Red Cell Distribution Width 12.4 % (11.5-14.0); White Blood Count 6.3 K/mm3 (4.0-10.5)
[2018-08-30 05:33] LABS: ALBUMIN 3.3 g/dL (3.5-5.0); ALKALINE PHOSPHATASE 65 U/L (38-126); ANION GAP 10.6 MEQ/L (5-15); BLOOD UREA NITROGEN 13 mg/dL (9-20); CHLORIDE 103 mmol/L (98-107); Carbon Dioxide 28 mmol/L (22-30); Creatinine 1 0.95 mg/dL (0.66-1.25); Glucose 226 mg/dL (74-106); Potassium 4.2 mmol/L (3.5-5.1); SGOT/AST 13 U/L (17-59); SGPT/ALT 18 U/L (0-50); SODIUM 137 mmol/L (137-145); Total Protein 5.8 g/dL (6.3-8.2)
[2018-08-30 07:26] VITALS: O2SAT 98
--- NOTE | 2018-08-30 08:53 | XRAY ---
Indication: Chest pressure and shortness of breath. Comparison: June 20, 2018. Portable apical lordotic chest demonstrates stable benign right mid peripheral nodule. No focal infiltrate, consolidation, or large effusion. Heart is not enlarged again demonstrating CABG surgery. Bony thorax intact again with mild degenerative changes. Impression: Stable nonacute chest with chronic features.
[2018-08-30] MEDS ORDERED: Sodium Chloride 0.9% 10 ML FLUSH Syringe IV PRN (09:13)
--- NOTE | 2018-08-30 09:25 | PCM.SSS ---
History of Present Illness - Chief Complaint Chief Complaint: chest pain History of Present Illness: is a 53 year old male with no local physician who arrived to the ER last evening complaining of chest pain. pain began at 5:30pm yesterday at rest that was substernal and radiated down his left arm. has had a cough and sinus congestion, was seen by his primary [employer] yesterday and given doxycycline, states he had some fever last week but none currently. ND has been ruled out, no chest pain today. has extensive hx of cad with multiple stents and CABG 11/2017. - Review of Systems Constitutional: No Fever, No Chills Respiratory: Cough, No Short Of Breath, No Wheezing Cardiac: Chest Pain, No Edema, No Palpitations, No Syncope, No Orthopnea, No PND Abdominal/Gastrointestinal: No Abdominal Pain, No Nausea, No Vomiting, No Diarrhea Genitourinary Symptoms: No Dysuria Skin: No Rash All Other Systems: Reviewed and Negative Medications & Allergies Home Medications: Home Medication List Aspirin 81 mg PO DAILY 10/28/17 [History Confirmed 08/29/18] Clonidine HCl 0.1 mg [Catapres 0.1 MG] 0.2 mg PO EVENING MEAL 10/28/17 [ History Confirmed 08/29/18] Enalapril Maleate [Vasotec] 10 mg PO BID 10/28/17 [History Confirmed 08/29/18] Insulin Glargine,Hum.rec.anlog [Lantus] 30 unit SQ HS 10/28/17 [History Confirmed 08/29/18] Nitroglycerin 0.4 mg Tablet [Nitrostat 0.4 MG Tablet] 0.4 mg SL UD [History Confirmed 08/29/18] Insulin Glulisine [Apidra Solostar] 14 - 17 units SQ TID 01/24/18 [History Confirmed 08/29/18] Metoprolol Succinate 100 mg [Toprol Xl 100 MG] 50 mg PO DAILY 01/24/18 [ History Confirmed 08/29/18] Oxycodone/APAP 5 mg/325 mg [Percocet Tablet 5/325Mg] 1 tab PO BID 01/24/18 [History Confirmed 08/29/18] Ezetimibe 10 mg [Zetia 10 MG] 10 mg PO DAILY 03/28/18 [History Confirmed ] Omeprazole 20 MG [Prilosec 20 mg] 20 mg PO BID 03/28/18 [History Confirmed 08/29] Ranolazine 500 MG [Ranexa 500 MG] 500 mg PO BID 03/28/18 [History Confirmed 08/29/18] Atorvastatin Calcium [Lipitor] 80 mg PO DAILY 06/20/18 [History Confirmed ] Clonazepam 0.5 mg PO QAM 06/20/18 [History Confirmed 08/29/18] Isosorbide Mononitrate 60 mg [Imdur 60MG] 60 mg PO DAILY 06/20/18 [History Confirmed 08/29/18] Clonazepam 1 mg PO HS 08/29/18 [History Confirmed 08/29/18] Allergies/Adverse Reactions: Allergies Allergy/AdvReac Type Severity Reaction Status Date / Time Fish Containing Products Allergy Severe Shortness Verified 06/20/18 21:06 of Breath moxifloxacin HCl Allergy Intermediate Hives Verified 06/20/18 21:06 [From Avelox] cephalexin [From Keflex] Allergy Unknown Verified 06/20/18 21:06 ciprofloxacin [From Cipro] Allergy Unknown Verified 06/20/18 21:06 fish oil Allergy Unknown Verified 06/20/18 21:06 lithium Allergy Unknown Verified 06/20/18 21:06 moxifloxacin [From Avelox] Allergy Unknown Verified 06/20/18 21:06 onion Allergy Unknown Verified 06/20/18 21:06 Sulfa (Sulfonamide Allergy Unknown Verified 06/20/18 21:06 Antibiotics) - Past Medical History Past Medical History: Yes Neurological History: Migraines ENT History: Macular Degeneration Cardiac History: Angina, Arrhythmia, Coronary Artery Disease, Myocardial Infarction (ND), High Cholesterol, Hypertension Respiratory History: Sleep Apnea, COPD, Asthma, Bronchitis Endocrine Medical History: Diabetes Type II, Liver Disease Musculoskelatal History: Osteoarthritis, Degenerative Disk Disease, Fibromyalgia GI Medical History: Diverticulitis, Ulcer, GERD, Pancreatitis, Gallbladder Disease History: No Pertinent History Pyscho-Social History: No Pertinent History Male Reproductive Disorders: No Pertinent History Comment: fibromyalgia - Past Surgical History Past Surgical History: Yes Neuro Surgical History: No Pertinent History Cardiac History: CABG, Cardiac Stent, Cardiac Catheterization Respiratory Surgery: Other GI Surgical History: No Pertinent History Genitourinary Surgical Hx: No Pertinent History Musculskeletal Surgical Hx: Orthopedic Surgery, Amputation Male Surgical History: No Pertinent History Other Surgical History: Rt knee, left ankle reconstructed - Social History Smoking Status: Current some day smoker How long have you smoked: 20 years Exposure to second hand smoke: Yes Alcohol: None Drug Use: none Significant Family History: no pertinent family hx - Physical Exam Vital Signs: Vital Signs - 24 hr Temp Pulse Resp BP Pulse Ox 08/30/18 07:25 97.9 F 46 L 18 109/68 98 08/30/18 04:00 97.5 F 54 L 14 115/65 96 08/30/18 02:08 94 L 08/30/18 02:00 55 L 18 94 L 08/30/18 00:50 97.5 F 48 L 18 120/70 96 08/30/18 00:00 97.5 F 49 L 22 109/68 96 08/29/18 23:51 97.5 F 48 L 22 120/70 96 08/29/18 22:40 96 08/29/18 21:52 98 08/29/18 20:50 49 L 15 97 08/29/18 20:40 51 L 97 H 119/80 08/29/18 19:50 53 L 124/76 97 08/29/18 19:29 96 08/29/18 19:00 97.1 F 59 L 18 163/93 98 General Appearance: no apparent distress, alert Neurologic Exam: alert, oriented x 3, cooperative, No motor deficits, No sensory deficit Eye Exam: PERRL/EOMI, eyes nml inspection Neck Exam: normal inspection, non-tender, supple, full range of motion Respiratory Exam: normal breath sounds, lungs clear, No respiratory distress Cardiovascular Exam: regular rate/rhythm, normal heart sounds, normal peripheral pulses Gastrointestinal/Abdomen Exam: soft, normal bowel sounds, No tenderness, No mass Extremity Exam: normal inspection, normal range of motion, pelvis stable Skin Exam: normal color, warm, dry, No rash Results - Labs Lab/Micro Results: Accuchecks Accucheck Value: 226 Accucheck Value: 257 Lab Results-Last 24 Hours 10/22/18 10/22/18 10/22/18 Range/Units 19:10 19:10 19:10 WBC 6.9 (4.0-10.5) K/mm3 RBC 4.25 (4.1-5.6) M/mm3 Hgb 12.6 (12.5-18.0) gm/dl Hct 37.6 L (42-50) % MCV 88.5 (78-100) fl MCH 29.6 (26-32) pg MCHC 33.5 (32-36) g/dl RDW 12.5 (11.5-14.0) % Plt Count 206 (150-450) K/mm3 MPV 9.6 H (6-9.5) fl Gran % 49.8 (36.0-66.0) % Eos # (Auto) 0.19 (0-0.5) Absolute Lymphs (auto) 2.55 (1.0-4.6) Absolute Monos (auto) 0.69 (0.0-1.3) Lymphocytes % 37.1 (24.0-44.0) % Monocytes % 10.0 (0.0-12.0) % Eosinophils % 2.8 (0.00-5.0) % Basophils % 0.3 (0.0-0.4) % Absolute Granulocytes 3.42 (1.4-6.9) Basophils # 0.02 (0-0.4) PT 11.4 (8.83-12.87) SECONDS INR 0.98 (0.8-3.0) APTT 24.0 L (24.1-36.1) SECONDS D-Dimer 456 (215-500) ng/mL Sodium 137 (137-145) mmol/L Potassium 4.4 (3.5-5.1) mmol/L Chloride 105 (98-107) mmol/L Carbon Dioxide 25 (22-30) mmol/L Anion Gap 12.0 (5-15) MEQ/L BUN 14 (9-20) mg/dL Creatinine 1.11 (0.66-1.25) mg/dL Estimated GFR > 60.0 ML/MIN Glucose 259 H (74-106) mg/dL Calcium 9.2 (8.4-10.2) mg/dL Total Bilirubin 0.20 (0.2-1.3) mg/dL AST 17 (17-59) U/L ALT 20 (0-50) U/L Alkaline Phosphatase 75 (38-126) U/L Troponin I (0.000-0.034) ng/mL NT-Pro-B Natriuret Pep 230 (0-900) pg/mL Serum Total Protein 6.7 (6.3-8.2) g/dL Albumin 3.8 (3.5-5.0) g/dL Amylase (30-110) U/L Lipase (23-300) U/L 08/29/18 08/29/18 08/29/18 Range/Units 19:10 19:10 23:05 WBC (4.0-10.5) K/mm3 RBC (4.1-5.6) M/mm3 Hgb (12.5-18.0) gm/dl Hct (42-50) % MCV (78-100) fl MCH (26-32) pg MCHC (32-36) g/dl RDW (11.5-14.0) % Plt Count (150-450) K/mm3 MPV (6-9.5) fl Gran % (36.0-66.0) % Eos # (Auto) (0-0.5) Absolute Lymphs (auto) (1.0-4.6) Absolute Monos (auto) (0.0-1.3) Lymphocytes % (24.0-44.0) % Monocytes % (0.0-12.0) % Eosinophils % (0.00-5.0) % Basophils % (0.0-0.4) % Absolute Granulocytes (1.4-6.9) Basophils # (0-0.4) PT (8.83-12.87) SECONDS INR (0.8-3.0) APTT (24.1-36.1) SECONDS D-Dimer (215-500) ng/mL Sodium (137-145) mmol/L Potassium (3.5-5.1) mmol/L Chloride (98-107) mmol/L Carbon Dioxide (22-30) mmol/L Anion Gap (5-15) MEQ/L BUN (9-20) mg/dL Creatinine (0.66-1.25) mg/dL Estimated GFR ML/MIN Glucose (74-106) mg/dL Calcium (8.4-10.2) mg/dL Total Bilirubin (0.2-1.3) mg/dL AST (17-59) U/L ALT (0-50) U/L Alkaline Phosphatase (38-126) U/L Troponin I < 0.012 < 0.012 (0.000-0.034) ng/mL NT-Pro-B Natriuret Pep (0-900) pg/mL Serum Total Protein (6.3-8.2) g/dL Albumin (3.5-5.0) g/dL Amylase < 30 L (30-110) U/L Lipase 70 (23-300) U/L 08/30/18 08/30/18 08/30/18 Range/Units 01:45 04:42 04:42 WBC 6.3 (4.0-10.5) K/mm3 RBC 4.21 (4.1-5.6) M/mm3 Hgb 12.5 (12.5-18.0) gm/dl Hct 37.4 L (42-50) % MCV 88.8 (78-100) fl MCH 29.7 (26-32) pg MCHC 33.4 (32-36) g/dl RDW 12.4 (11.5-14.0) % Plt Count 191 (150-450) K/mm3 MPV 9.9 H (6-9.5) fl Gran % 36.4 (36.0-66.0) % Eos # (Auto) 0.15 (0-0.5) Absolute Lymphs (auto) 3.27 (1.0-4.6) Absolute Monos (auto) 0.59 (0.0-1.3) Lymphocytes % 51.7 H (24.0-44.0) % Monocytes % 9.3 (0.0-12.0) % Eosinophils % 2.4 (0.00-5.0) % Basophils % 0.2 (0.0-0.4) % Absolute Granulocytes 2.30 (1.4-6.9) Basophils # 0.01 (0-0.4) PT (8.83-12.87) SECONDS INR (0.8-3.0) APTT (24.1-36.1) SECONDS D-Dimer (215-500) ng/mL Sodium (137-145) mmol/L Potassium (3.5-5.1) mmol/L Chloride (98-107) mmol/L Carbon Dioxide (22-30) mmol/L Anion Gap (5-15) MEQ/L BUN (9-20) mg/dL Creatinine (0.66-1.25) mg/dL Estimated GFR ML/MIN Glucose (74-106) mg/dL Calcium (8.4-10.2) mg/dL Total Bilirubin (0.2-1.3) mg/dL AST (17-59) U/L ALT (0-50) U/L Alkaline Phosphatase (38-126) U/L Troponin I < 0.012 < 0.012 (0.000-0.034) ng/mL NT-Pro-B Natriuret Pep (0-900) pg/mL Serum Total Protein (6.3-8.2) g/dL Albumin (3.5-5.0) g/dL Amylase (30-110) U/L Lipase (23-300) U/L 08/30/18 Range/Units 04:42 WBC (4.0-10.5) K/mm3 RBC (4.1-5.6) M/mm3 Hgb (12.5-18.0) gm/dl Hct (42-50) % MCV (78-100) fl MCH (26-32) pg MCHC (32-36) g/dl RDW (11.5-14.0) % Plt Count (150-450) K/mm3 MPV (6-9.5) fl Gran % (36.0-66.0) % Eos # (Auto) (0-0.5) Absolute Lymphs (auto) (1.0-4.6) Absolute Monos (auto) (0.0-1.3) Lymphocytes % (24.0-44.0) % Monocytes % (0.0-12.0) % Eosinophils % (0.00-5.0) % Basophils % (0.0-0.4) % Absolute Granulocytes (1.4-6.9) Basophils # (0-0.4) PT (8.83-12.87) SECONDS INR (0.8-3.0) APTT (24.1-36.1) SECONDS D-Dimer (215-500) ng/mL Sodium 137 (137-145) mmol/L Potassium 4.2 (3.5-5.1) mmol/L Chloride 103 (98-107) mmol/L Carbon Dioxide 28 (22-30) mmol/L Anion Gap 10.6 (5-15) MEQ/L BUN 13 (9-20) mg/dL Creatinine 0.95 (0.66-1.25) mg/dL Estimated GFR > 60.0 ML/MIN Glucose 226 H (74-106) mg/dL Calcium 9.0 (8.4-10.2) mg/dL Total Bilirubin 0.20 (0.2-1.3) mg/dL AST 13 L (17-59) U/L ALT 18 (0-50) U/L Alkaline Phosphatase 65 (38-126) U/L Troponin I (0.000-0.034) ng/mL NT-Pro-B Natriuret Pep (0-900) pg/mL Serum Total Protein 5.8 L (6.3-8.2) g/dL Albumin 3.3 L (3.5-5.0) g/dL Amylase (30-110) U/L Lipase (23-300) U/L Accuchecks Accucheck Value: 226 Accucheck Value: 257 - Radiology Impressions Radiology Exams & Impressions: Radiology Procedures Category Date Time Status CHEST 1 VIEW (PORTABLE) Stat Exams 08/29/18 19:25 Completed Assessment/Plan (1) Chest pain Current Visit: Yes Status: Acute Onset Date: ~08/29/18 Qualifiers: Chest pain type: unspecified Qualified Code(s): R07.9 - Chest pain, unspecified Assessment & Plan: ND ruled out at this time, EKG with no specific changes. will follow up with Dr Klein Code(s): R07.9 - CHEST PAIN, UNSPECIFIED (2) Coronary artery disease Current Visit: Yes Status: Acute Code(s): I25.10 - ATHSCL HEART DISEASE OF [place] CORONARY ARTERY W/O ANG PCTRS (3) Diabetes Current Visit: No Status: Chronic Code(s): E11.9 - TYPE 2 DIABETES MELLITUS WITHOUT COMPLICATIONS Hospital Summary - Vitals & Intake/Output Vital Signs: Vital Signs Temperature 97.9 F 08/30/18 07:25 Pulse Rate 46 L 08/30/18 07:25 Respiratory Rate 18 08/30/18 07:25 Blood Pressure 109/68 08/30/18 07:25 O2 Sat by Pulse Oximetry 98 08/30/18 07:25 Intake & Output: Intake & Output 08/27/18 08/28/18 08/29/18 08/30/18 11:59 11:59 11:59 11:59 Intake Total 1440 Output Total 600 Balance 840 Weight 138.3 kg - Lab Result Diagrams: 08/30/18 04:42 08/30/18 04:42 Lab Results-Last 24 Hrs: Accuchecks Accucheck Value: 226 Accucheck Value: 257 Lab Results-Last 24 Hours 08/29/18 08/29/18 08/29/18 Range/Units 19:10 19:10 19:10 WBC 6.9 (4.0-10.5) K/mm3 RBC 4.25 (4.1-5.6) M/mm3 Hgb 12.6 (12.5-18.0) gm/dl Hct 37.6 L (42-50) % MCV 88.5 (78-100) fl MCH 29.6 (26-32) pg MCHC 33.5 (32-36) g/dl RDW 12.5 (11.5-14.0) % Plt Count 206 (150-450) K/mm3 MPV 9.6 H (6-9.5) fl Gran % 49.8 (36.0-66.0) % Eos # (Auto) 0.19 (0-0.5) Absolute Lymphs (auto) 2.55 (1.0-4.6) Absolute Monos (auto) 0.69 (0.0-1.3) Lymphocytes % 37.1 (24.0-44.0) % Monocytes % 10.0 (0.0-12.0) % Eosinophils % 2.8 (0.00-5.0) % Basophils % 0.3 (0.0-0.4) % Absolute Granulocytes 3.42 (1.4-6.9) Basophils # 0.02 (0-0.4) PT 11.4 (8.83-12.87) SECONDS INR 0.98 (0.8-3.0) APTT 24.0 L (24.1-36.1) SECONDS D-Dimer 456 (215-500) ng/mL Sodium 137 (137-145) mmol/L Potassium 4.4 (3.5-5.1) mmol/L Chloride 105 (98-107) mmol/L Carbon Dioxide 25 (22-30) mmol/L Anion Gap 12.0 (5-15) MEQ/L BUN 14 (9-20) mg/dL Creatinine 1.11 (0.66-1.25) mg/dL Estimated GFR > 60.0 ML/MIN Glucose 259 H (74-106) mg/dL Calcium 9.2 (8.4-10.2) mg/dL Total Bilirubin 0.20 (0.2-1.3) mg/dL AST 17 (17-59) U/L ALT 20 (0-50) U/L Alkaline Phosphatase 75 (38-126) U/L Troponin I (0.000-0.034) ng/mL NT-Pro-B Natriuret Pep 230 (0-900) pg/mL Serum Total Protein 6.7 (6.3-8.2) g/dL Albumin 3.8 (3.5-5.0) g/dL Amylase (30-110) U/L Lipase (23-300) U/L 08/29/18 08/29/18 08/29/18 Range/Units 19:10 19:10 23:05 WBC (4.0-10.5) K/mm3 RBC (4.1-5.6) M/mm3 Hgb (12.5-18.0) gm/dl Hct (42-50) % MCV (78-100) fl MCH (26-32) pg MCHC (32-36) g/dl RDW (11.5-14.0) % Plt Count (150-450) K/mm3 MPV (6-9.5) fl Gran % (36.0-66.0) % Eos # (Auto) (0-0.5) Absolute Lymphs (auto) (1.0-4.6) Absolute Monos (auto) (0.0-1.3) Lymphocytes % (24.0-44.0) % Monocytes % (0.0-12.0) % Eosinophils % (0.00-5.0) % Basophils % (0.0-0.4) % Absolute Granulocytes (1.4-6.9) Basophils # (0-0.4) PT (8.83-12.87) SECONDS INR (0.8-3.0) APTT (24.1-36.1) SECONDS D-Dimer (215-500) ng/mL Sodium (137-145) mmol/L Potassium (3.5-5.1) mmol/L Chloride (98-107) mmol/L Carbon Dioxide (22-30) mmol/L Anion Gap (5-15) MEQ/L BUN (9-20) mg/dL Creatinine (0.66-1.25) mg/dL Estimated GFR ML/MIN Glucose (74-106) mg/dL Calcium (8.4-10.2) mg/dL Total Bilirubin (0.2-1.3) mg/dL AST (17-59) U/L ALT (0-50) U/L Alkaline Phosphatase (38-126) U/L Troponin I < 0.012 < 0.012 (0.000-0.034) ng/mL NT-Pro-B Natriuret Pep (0-900) pg/mL Serum Total Protein (6.3-8.2) g/dL Albumin (3.5-5.0) g/dL Amylase < 30 L (30-110) U/L Lipase 70 (23-300) U/L 08/30/18 08/30/18 08/30/18 Range/Units 01:45 04:42 04:42 WBC 6.3 (4.0-10.5) K/mm3 RBC 4.21 (4.1-5.6) M/mm3 Hgb 12.5 (12.5-18.0) gm/dl Hct 37.4 L (42-50) % MCV 88.8 (78-100) fl MCH 29.7 (26-32) pg MCHC 33.4 (32-36) g/dl RDW 12.4 (11.5-14.0) % Plt Count 191 (150-450) K/mm3 MPV 9.9 H (6-9.5) fl Gran % 36.4 (36.0-66.0) % Eos # (Auto) 0.15 (0-0.5) Absolute Lymphs (auto) 3.27 (1.0-4.6) Absolute Monos (auto) 0.59 (0.0-1.3) Lymphocytes % 51.7 H (24.0-44.0) % Monocytes % 9.3 (0.0-12.0) % Eosinophils % 2.4 (0.00-5.0) % Basophils % 0.2 (0.0-0.4) % Absolute Granulocytes 2.30 (1.4-6.9) Basophils # 0.01 (0-0.4) PT (8.83-12.87) SECONDS INR (0.8-3.0) APTT (24.1-36.1) SECONDS D-Dimer (215-500) ng/mL Sodium (137-145) mmol/L Potassium (3.5-5.1) mmol/L Chloride (98-107) mmol/L Carbon Dioxide (22-30) mmol/L Anion Gap (5-15) MEQ/L BUN (9-20) mg/dL Creatinine (0.66-1.25) mg/dL Estimated GFR ML/MIN Glucose (74-106) mg/dL Calcium (8.4-10.2) mg/dL Total Bilirubin (0.2-1.3) mg/dL AST (17-59) U/L ALT (0-50) U/L Alkaline Phosphatase (38-126) U/L Troponin I < 0.012 < 0.012 (0.000-0.034) ng/mL NT-Pro-B Natriuret Pep (0-900) pg/mL Serum Total Protein (6.3-8.2) g/dL Albumin (3.5-5.0) g/dL Amylase (30-110) U/L Lipase (23-300) U/L 08/30/18 Range/Units 04:42 WBC (4.0-10.5) K/mm3 RBC (4.1-5.6) M/mm3 Hgb (12.5-18.0) gm/dl Hct (42-50) % MCV (78-100) fl MCH (26-32) pg MCHC (32-36) g/dl RDW (11.5-14.0) % Plt Count (150-450) K/mm3 MPV (6-9.5) fl Gran % (36.0-66.0) % Eos # (Auto) (0-0.5) Absolute Lymphs (auto) (1.0-4.6) Absolute Monos (auto) (0.0-1.3) Lymphocytes % (24.0-44.0) % Monocytes % (0.0-12.0) % Eosinophils % (0.00-5.0) % Basophils % (0.0-0.4) % Absolute Granulocytes (1.4-6.9) Basophils # (0-0.4) PT (8.83-12.87) SECONDS INR (0.8-3.0) APTT (24.1-36.1) SECONDS D-Dimer (215-500) ng/mL Sodium 137 (137-145) mmol/L Potassium 4.2 (3.5-5.1) mmol/L Chloride 103 (98-107) mmol/L Carbon Dioxide 28 (22-30) mmol/L Anion Gap 10.6 (5-15) MEQ/L BUN 13 (9-20) mg/dL Creatinine 0.95 (0.66-1.25) mg/dL Estimated GFR > 60.0 ML/MIN Glucose 226 H (74-106) mg/dL Calcium 9.0 (8.4-10.2) mg/dL Total Bilirubin 0.20 (0.2-1.3) mg/dL AST 13 L (17-59) U/L ALT 18 (0-50) U/L Alkaline Phosphatase 65 (38-126) U/L Troponin I (0.000-0.034) ng/mL NT-Pro-B Natriuret Pep (0-900) pg/mL Serum Total Protein 5.8 L (6.3-8.2) g/dL Albumin 3.3 L (3.5-5.0) g/dL Amylase (30-110) U/L Lipase (23-300) U/L Micro Results-Entire Visit: Accuchecks Accucheck Value: 226 Accucheck Value: 257 - Radiology Exams Ordered Rad Exams-Entire Visit: Radiology Procedures Category Date Time Status CHEST 1 VIEW (PORTABLE) Stat Exams 08/29/18 19:25 Completed - Procedures and Test Procedures and Tests throughout Hospitalization: Therapy Orders & Screens 08/29/18 22:40 Respiratory Therapy Consult ROUTINE Comment: Reason For Exam: 08/30/18 01:29 RT Screen per Nursing Assess ONCE Comment: Protocol Order Physician Instructions: Greater than 3 points order RT Admission Screen Reason For Exam: Triggered on Admission Diagnosis: chest pain Diagnosis: chest pain Pneumonia: No Home O2: No Asthma: Yes CHF: No Home CPAP/BIPAP: Yes Home Nebs/MDI: No Total Points: 9 Smoking Cessation Education ONCE Comment: Diagnosis: chest pain Smoking Status: Current some day smoker How long have you smoked: 20 years Have you smoked in the past 12 months: Yes Approximately how many cigarettes per day: 1 pack per day Do you dip or chew tobacco: No If,Former Smoker,when did you quit: 10/20/2017 - Discharge Disposition: Home, Self-Care Condition: Good Prescriptions: Continue Clonidine HCl 0.1 mg [Catapres 0.1 MG] 0.2 mg PO EVENING MEAL Insulin Glargine,Hum.rec.anlog [Lantus] 30 unit SQ HS Enalapril Maleate [Vasotec] 10 mg PO BID Aspirin 81 mg PO DAILY Nitroglycerin 0.4 mg Tablet [Nitrostat 0.4 MG Tablet] 0.4 mg SL UD Insulin Glulisine [Apidra Solostar] 14 - 17 units SQ TID Metoprolol Succinate 100 mg [Toprol Xl 100 MG] 50 mg PO DAILY Oxycodone/APAP 5 mg/325 mg [Percocet Tablet 5/325Mg] 1 tab PO BID Ranolazine 500 MG [Ranexa 500 MG] 500 mg PO BID Ezetimibe 10 mg [Zetia 10 MG] 10 mg PO DAILY Omeprazole 20 MG [Prilosec 20 mg] 20 mg PO BID Isosorbide Mononitrate 60 mg [Imdur 60MG] 60 mg PO DAILY Clonazepam 0.5 mg PO QAM Atorvastatin Calcium [Lipitor] 80 mg PO DAILY Clonazepam 1 mg PO HS Follow up with: MAGEN WAKEFIELD MD [Primary Care Provider] - 1 Week Jose Klein MD [CONSULTING PHYSICIAN] - 1 Week
[2018-08-30] MEDS ORDERED: PERCOCET TABLET 5/325MG PO SCH (11:28)
[2018-08-30] MEDS ORDERED: Imdur 60MG PO SCH (11:30)
[2018-08-30] MEDS ORDERED: INSULIN GLULISINE SQ SCH (11:30)
[2018-08-30] MEDS ORDERED: Nitrostat 0.4 MG Tablet SL PRN (11:30)
[2018-08-30] MEDS ORDERED: ECOTRIN 81 MG PO SCH (11:30)
[2018-08-30] MEDS: Zetia 10 MG PO SCH ×2 (11:42→12:00)
[2018-08-30] MEDS ORDERED: Toprol Xl 50 MG PO SCH (11:45)
[2018-08-30] MEDS ORDERED: Ranexa 500 MG PO SCH (11:45)
[2018-08-30] MEDS ORDERED: Protonix 40MG Tablet PO SCH (11:45)
[2018-08-30] MEDS ORDERED: NovoLOG Insulin SQ SCH (11:45)
[2018-08-30] MEDS ORDERED: Klonopin 0.5 MG PO SCH ×2 (12:00)
[2018-08-30] MEDS ORDERED: LIPITOR 40MG PO SCH (12:00)
[2018-08-30] MEDS ORDERED: PLAVIX 75 MG Tablet PO SCH (12:00)
[2018-08-30] MEDS ORDERED: Vasotec 10 MG PO SCH (12:00)
[2018-08-30 12:11] VITALS: BP 154/87; PULSE 53
[2018-08-30] MEDS ORDERED: Sodium Chloride 0.9% 10 ML FLUSH Syringe IV SCH (14:00)
[2018-08-30] MEDS ORDERED: Catapres 0.1 MG PO SCH (18:00)
[2018-08-30] MEDS ORDERED: Lantus Insulin SQ SCH (22:00)
[2018-08-30] MEDS ORDERED: NON-FORMULARY ITEM (Omeprazole 20 Mg [Prilosec 20 Mg] 20 MG) PO SCH (22:00)
[2018-08-31] MEDS ORDERED: NON-FORMULARY ITEM (Atorvastatin Calcium [Lipitor] 80 MG) PO SCH (10:00)
[2018-08-31] MEDS ORDERED: NON-FORMULARY ITEM (Aspirin [Aspirin] 81 MG) PO SCH (10:00)
[2018-08-31] MEDS ORDERED: Toprol Xl 100 MG PO SCH (10:00)
== END 2018-08-30 13:15 | disposition home or self-care (01) ==
LOC: ED 18:54 → MED SURG 22:37
PROVIDERS: ADMIT Family Medicine; ATTEND Family Medicine
DX: R07.9 Chest pain, unspecified (principal); I25.810 Atherosclerosis of coronary artery bypass graft(s) without angina pectoris; E11.9 Type 2 diabetes mellitus without complications; I25.2 Old myocardial infarction; Z79.899 Other long term (current) drug therapy; E78.00 Pure hypercholesterolemia, unspecified; I10 Essential (primary) hypertension; G47.30 Sleep apnea, unspecified; J44.9 Chronic obstructive pulmonary disease, unspecified; J45.909 Unspecified asthma, uncomplicated; K76.9 Liver disease, unspecified; M79.7 Fibromyalgia; Z72.0 Tobacco use
CPT/HCPCS: 36000; 36415; 71045; 80053; 82150; 82962; 83036; 83690; 83880; 84484; 85025; 85379; 85610; 85730; 93005; 93041; 93268; 94760; 99285; G0378; A9270-GY

== ENCOUNTER 2023-12-28 17:08 | Observation (INO) | payer MEDICAID ==
--- NOTE | 2023-12-28 18:34 | ERPHSYRPT ---
- History of Present Illness Time Seen by Provider: 12/28/23 17:30 Historian: patient Exam Limitations: no limitations Patient Subjective Stated Complaint: PT states "I was just at [facility] and they ran a bunch of tests and all the troponins were negative but when I got home, my blood pressure went up and my chest started to hurt and I spoke with the quality cloth tester nurse and she advised to head up to [place] but we couldn't make it that far so we stopped here." Triage Nursing Assessment: Pt presented alert and oriented X 3, skin pwd. Pt ambulates with an upright steady gait, able to speak in clear full sentences. Pt resting comfortably on the bed in no apparent respiratory distress. Physician History: Patient is a 58-year-old male history of COPD hypertension hyperlipidemia CABG stent x 9 diabetes presents to our ED for evaluation of chest pain. Patient was seen at [facility] for the same today. Patient had a negative workup and was discharged home. Patient went home and observed his blood pressure to be elevated. Patient began to have chest pain. He called his quality cloth tester and was advised to go to [facility]. Due to the intensity of the chest pain patient diverted to our hospital instead. No associated nausea vomiting diaphoresis chest pain is substernal no radiation. Pain is mild to moderate in intensity. No specific worsening or improving factors. Patient voices no other complaints or concerns at this time. Patient has received his dose of aspirin for the day. Patient also received nitroglycerin at [facility] Portions of this note were created with voice recognition technology. There may be grammatical, spelling, punctuation or sound alike errors Timing/Duration: today Activities at Onset: none Quality: aching Location: substernal Chest Pain Radiation: no radiation Severity of Pain-Max: moderate Severity of Pain-Current: mild Modifying Factors: Improves With: exertion Associated Symptoms: denies symptoms Prior Chest Pain/Cardiac Workup: cardiac cath Nitro Today/Relief: no nitro taken today Aspirin Treatment Today: no aspirin today Allergies/Adverse Reactions: Fish Containing Products Allergy (Severe, Verified 06/20/18 21:06) Shortness of Breath fish protein causes swelling and SOB moxifloxacin HCl [From Avelox] Allergy (Intermediate, Verified 06/20/18 21:06) Hives cephalexin [From Keflex] Allergy (Unknown, Verified 06/20/18 21:06) ciprofloxacin [From Cipro] Allergy (Unknown, Verified 06/20/18 21:06) fish oil Allergy (Unknown, Verified 06/20/18 21:06) lithium Allergy (Unknown, Verified 06/20/18 21:06) moxifloxacin [From Avelox] Allergy (Unknown, Verified 06/20/18 21:06) onion Allergy (Unknown, Verified 06/20/18 21:06) Sulfa (Sulfonamide Antibiotics) Allergy (Unknown, Verified 06/20/18 21:06) Home Medications: Aspirin 81 mg PO DAILY 10/28/17 [History] Clonidine HCl 0.1 mg [Clonidine 0.1 mg Tablet] 0.2 mg PO EVENING MEAL 10/28/17 [History] Enalapril Maleate [Vasotec] 10 mg PO BID 10/28/17 [History] Insulin Glargine,Hum.rec.anlog [Lantus] 30 unit SQ HS 10/28/17 [History] Nitroglycerin 0.4 mg Tablet [Nitrostat 0.4 MG Tablet] 0.4 mg SL UD 10/28/17 [History] Insulin Glulisine [Apidra Solostar] 14 - 17 units SQ TID 01/24/18 [History] Oxycodone/APAP 5 mg/325 mg [Percocet Tablet 5/325Mg] 1 tab PO BID 01/24/18 [History] Ezetimibe 10 mg [Zetia 10 MG] 10 mg PO DAILY 03/28/18 [History] Omeprazole 20 MG [Prilosec 20 mg] 20 mg PO BID 03/28/18 [History] Ranolazine 500 MG [Ranexa 500 MG] 500 mg PO BID 03/28/18 [History] Atorvastatin Calcium [Lipitor] 80 mg PO DAILY 06/20/18 [History] clonazePAM [Clonazepam] 0.5 mg PO QAM 06/20/18 [History] clonazePAM [Clonazepam] 1 mg PO HS 08/29/18 [History] Clopidogrel Bisulfate [PLAVIX Tablet] 75 mg PO DAILY 08/30/18 [History] Lisinopril 10 mg [Zestril 10 MG] 10 mg PO WEEKLY 12/28/23 [History] Semaglutide [Ozempic] 0.25 mg SQ DAILY 12/28/23 [History] Hx Tetanus, Diphtheria Vaccination/Date Given: No (2010) Hx Influenza Vaccination/Date Given: No Hx Pneumococcal Vaccination/Date Given: No Immunizations Up to Date: No Travel Risk - International Travel Have you traveled outside of the country in past 3 weeks: No - Coronavirus Screening Are you exhibiting any of the following symptoms?: No Close contact with a COVID-19 positive Pt in past 14-21 Days: No - Vaccine Status Have you recieved a Covid-19 vaccination: Yes Nonprofit Fundraiser: Unknown - Vaccination Dates Dates if Unknown: 2020 - Review of Systems Constitutional: No Symptoms, No Fever, No Chills Eyes: No Symptoms Ears, Nose, & Throat: No Symptoms Respiratory: No Symptoms, No Cough, No Dyspnea Cardiac: No Symptoms, No Chest Pain, No Edema, No Syncope Abdominal/Gastrointestinal: No Symptoms, No Abdominal Pain, No Nausea, No Vomiting, No Diarrhea Genitourinary Symptoms: No Symptoms, No Dysuria Musculoskeletal: No Symptoms, No Back Pain, No Neck Pain Skin: No Symptoms, No Rash Neurological: No Symptoms, No Dizziness, No Focal Weakness, No Sensory Changes Psychological: No Symptoms Endocrine: No Symptoms Hematologic/Lymphatic: No Symptoms Immunological/Allergic: No Symptoms All Other Systems: Reviewed and Negative - Past Medical History Pertinent Past Medical History: Yes Neurological History: No Pertinent History ENT History: Macular Degeneration Cardiac History: Angina, High Cholesterol, Hypertension Respiratory History: Bronchitis, COPD Endocrine Medical History: No Pertinent History, Diabetes Type II Musculoskeletal History: Fibromyalgia, Osteoporosis GI Medical History: Diverticulitis, Ulcer, GERD, Pancreatitis, Gallbladder Disease History: No Pertinent History Psycho-Social History: No Pertinent History Male Reproductive Disorders: No Pertinent History Other Medical History: OBESITY; CABG 2017, CARDIA STENTS 2018 (HAS HAD 9 PLACED), CHOLECYSTECTOMY (05/2019) - Past Surgical History Past Surgical History: Yes Neuro Surgical History: No Pertinent History Cardiac: CABG, Cardiac Stent, Cardiac Catheterization Respiratory: Other Gastrointestinal: No Pertinent History Genitourinary: No Pertinent History Musculoskeletal: Orthopedic Surgery, Amputation Male Surgical History: No Pertinent History Other Surgical History: Rt knee, left ankle reconstructed - Social History Smoking Status: Former smoker How long have you smoked: 20 years Exposure to second hand smoke: No Alcohol Use: Socially Drug Use: none Patient Lives Alone: No Significant Family History: no pertinent family hx - Nursing Vital Signs Nursing Vital Signs: Initial Vital Signs Temperature 97.1 F 12/28/23 17:09 Pulse Rate 76 12/28/23 17:09 Respiratory Rate 18 12/28/23 17:09 O2 Sat by Pulse Oximetry 98 12/28/23 17:09 Pain Scale Pain Intensity 5 - Physical Exam General Appearance: no apparent distress, alert, obese Eye Exam: PERRL/EOMI, eyes nml inspection Ears, Nose, Throat Exam: normal ENT inspection, moist mucous membranes Neck Exam: normal inspection, non-tender, supple, full range of motion Respiratory Exam: normal breath sounds, lungs clear, No respiratory distress Cardiovascular Exam: regular rate/rhythm, normal heart sounds Gastrointestinal/Abdomen Exam: soft, No tenderness, No mass Back Exam: normal inspection, No CVA tenderness, No vertebral tenderness Extremity Exam: normal inspection, normal range of motion Neurologic Exam: alert, oriented x 3, cooperative, normal mood/affect, sensation nml, No motor deficits Skin Exam: normal color, warm, dry Lymphatic Exam: No adenopathy SpO2 Interpretation: normal SpO2: 96 O2 Delivery: Room Air - Course Nursing assessment & vital signs reviewed: Yes EKG Interpreted by Me: RATE (74), Sinus Rhythm, NORMAL AXIS, NORMAL INTERVALS - Radiology Exams Chest X-ray Interpretation: Teleradiologist Report (Per the x-ray performed today at [facility] chest x-ray shows no focal opacities no pleural effusion or pneumothorax. There is a stable 1.5 cm rounded soft tissue lesion in the lateral right upper chest unchanged) Ordered Tests: Active Orders 24 hr Category Date Time Status Manager Route STAT Care 12/28/23 17:58 Active Pulse Oximetry (ED) STAT Care 12/28/23 17:58 Active CBC W DIFF Stat Lab 12/28/23 18:15 Completed CMP Stat Lab 12/28/23 18:15 Completed D-DIMER QUANTITATIVE Stat Lab 12/28/23 18:15 Completed NT PRO BNPII Stat Lab 12/28/23 18:15 Completed TROPONIN Q4H Lab 12/28/23 18:15 Completed TROPONIN Q4H Lab 12/28/23 22:00 Ordered TROPONIN Q4H Lab 12/29/23 02:00 Ordered Transfer Order Routine Transfer 12/28/23 Ordered Lab/Rad Data: Laboratory Result Diagrams 12/28/23 18:15 12/28/23 18:15 Laboratory Results 12/28/23 12/28/23 12/28/23 Range/Units 18:15 18:15 18:15 WBC (4.0-10.5) x10^3/uL RBC (4.1-5.6) x10^6/uL Hgb (12.5-18.0) g/dL Hct (42-50) % MCV (78-100) fL MCH (26-32) pg MCHC (32-36) g/dL RDW (11.5-14.0) % Plt Count (150-450) x10^3/uL MPV (7.5-11.0) fL Gran % (36.0-66.0) % Immature Gran % (Auto) (0.00-0.4) % Nucleat RBC Rel Count (0.00-0.1) % Eos # (Auto) (0-0.5) x10^3/uL Immature Gran # (Auto) (0.00-0.03) x10^3u/L Absolute Lymphs (auto) (1.0-4.6) x10^3/uL Absolute Monos (auto) (0.0-1.3) x10^3/uL Absolute Nucleated RBC (0.00-0.01) x10^3u/L Lymphocytes % (24.0-44.0) % Monocytes % (0.0-12.0) % Eosinophils % (0.00-5.0) % Basophils % (0.0-0.4) % Absolute Granulocytes (1.4-6.9) x10^3/uL Basophils # (0-0.4) x10^3/uL D-Dimer 0.46 (0.0-0.50) mg/L Sodium (137-145) mmol/L Potassium (3.5-5.1) mmol/L Chloride (98-107) mmol/L Carbon Dioxide (22-30) mmol/L Anion Gap (5-15) MEQ/L BUN (9-20) mg/dL Creatinine (0.66-1.25) mg/dL Estimated GFR ML/MIN Glucose (74-106) mg/dL Calcium (8.4-10.2) mg/dL Total Bilirubin (0.2-1.3) mg/dL AST (17-59) U/L ALT (0-50) U/L Alkaline Phosphatase (38-126) U/L Troponin I < 0.012 (0.000-0.034) ng/mL NT-Pro-B Natriuret Pep 34.7 (<300) pg/mL Serum Total Protein (6.3-8.2) g/dL Albumin (3.5-5.0) g/dL 12/28/23 12/28/23 Range/Units 18:15 18:15 WBC 6.8 (4.0-10.5) x10^3/uL RBC 4.51 (4.1-5.6) x10^6/uL Hgb 13.6 (12.5-18.0) g/dL Hct 41.1 L (42-50) % MCV 91.1 (78-100) fL MCH 30.2 (26-32) pg MCHC 33.1 (32-36) g/dL RDW 12.1 (11.5-14.0) % Plt Count 232 (150-450) x10^3/uL MPV 9.0 (7.5-11.0) fL Gran % 66.3 H (36.0-66.0) % Immature Gran % (Auto) 0.4 (0.00-0.4) % Nucleat RBC Rel Count 0.0 (0.00-0.1) % Eos # (Auto) 0.08 (0-0.5) x10^3/uL Immature Gran # (Auto) 0.03 (0.00-0.03) x10^3u/L Absolute Lymphs (auto) 1.65 (1.0-4.6) x10^3/uL Absolute Monos (auto) 0.49 (0.0-1.3) x10^3/uL Absolute Nucleated RBC 0.00 (0.00-0.01) x10^3u/L Lymphocytes % 24.4 (24.0-44.0) % Monocytes % 7.3 (0.0-12.0) % Eosinophils % 1.2 (0.00-5.0) % Basophils % 0.4 (0.0-0.4) % Absolute Granulocytes 4.47 (1.4-6.9) x10^3/uL Basophils # 0.03 (0-0.4) x10^3/uL D-Dimer (0.0-0.50) mg/L Sodium 136 L (137-145) mmol/L Potassium 4.3 (3.5-5.1) mmol/L Chloride 104 (98-107) mmol/L Carbon Dioxide 27 (22-30) mmol/L Anion Gap 9.1 (5-15) MEQ/L BUN 14 (9-20) mg/dL Creatinine 0.87 (0.66-1.25) mg/dL Estimated GFR 100.0 ML/MIN Glucose 165 H (74-106) mg/dL Calcium 9.0 (8.4-10.2) mg/dL Total Bilirubin 0.60 (0.2-1.3) mg/dL AST 22 (17-59) U/L ALT 31 (0-50) U/L Alkaline Phosphatase 70 (38-126) U/L Troponin I (0.000-0.034) ng/mL NT-Pro-B Natriuret Pep (<300) pg/mL Serum Total Protein 6.8 (6.3-8.2) g/dL Albumin 4.1 (3.5-5.0) g/dL - Progress Progress: improved Air Movement: good Progress Note: Patient accepted for admission by Dr. Enoc Meadows at 7:30 PM. 58-year-old male presents to the emergency department for evaluation of chest pain. Patient has significant cardiac history. Patient was worked up at [facility] prior to arrival. Patient arrived to his home and developed recurrence of the chest pain. Physical exam here in our ED essentially nonremarkable. Initial troponin here negative. D-dimer negative. We did not repeat the chest x-ray as 1 was done today at the outside hospital which showed no acute findings. In light of patient's cardiac risk factors and chest pain patient admitted to our ED for further evaluation and treatment. Patient received 324 mg of aspirin at the outside hospital. Plan of care discussed with patient. He agrees to admission to [facility] for further evaluation and treatment. Portions of this note were created with voice recognition technology. There may be grammatical, spelling, punctuation or sound alike errors 12/28/23 19:30 Thao complexity of problem addressed is moderate acute complicated No critical care time Complaints of data reviewed and analyzed is extensive. Test ordered test reviewed. Results analyzed and correlated clinically with history and physical examination. Management discussed with hospitalist who accepts admission to observation. Risk of complication and or risk of morbidity/mortality of patient management is moderate Vital stable. Time spent to admit patient is approximately 20 minutes. Plan of care established for shared decision making. No social determinants of health present impede follow-up Portions of this note were created with voice recognition technology. There may be grammatical, spelling, punctuation or sound alike errors 12/28/23 19:34 Blood Culture(s) Obtained: No Antibiotics given: No Counseled pt/family regarding: lab results, diagnosis - Departure Departure Disposition: Observation Clinical Impression: Chest pain, ACS (acute coronary syndrome) Condition: Stable Critical Care Time: No Referrals: MAGEN WAKEFIELD MD [Primary Care Provider] - Follow up/PCP as directed
[2023-12-28 18:37] LABS: Absolute Neutrophil Ct (ANC) 4.47 x10^3/uL (1.4-6.9); BASOPHIL % 0.4 % (0.0-0.4); Basophil (Absolute #) 0.03 x10^3/uL (0-0.4); Eosinophil % 1.2 % (0.00-5.0); Eosinophil (Absolute #) 0.08 x10^3/uL (0-0.5); Hematocrit 41.1 % (42-50); Hemoglobin 13.6 g/dL (12.5-18.0); IMMATURE GRAN # 0.03 x10^3u/L (0.00-0.03); IMMATURE GRAN % 0.4 % (0.00-0.4); Lymphocyte (Absolute #) 1.65 x10^3/uL (1.0-4.6); Lymphocytes % 24.4 % (24.0-44.0); Mean Cell Volume 91.1 fL (78-100); Mean Corpuscular Hemoglobin 30.2 pg (26-32); Mean Corpuscular Hgb Concent. 33.1 g/dL (32-36); Monocyte (Absolute #) 0.49 x10^3/uL (0.0-1.3); Monocytes % 7.3 % (0.0-12.0); Neutrophil % 66.3 % (36.0-66.0); Platelet Count 232 x10^3/uL (150-450); Red Blood Count 4.51 x10^6/uL (4.1-5.6); Red Cell Distribution Width 12.1 % (11.5-14.0); White Blood Count 6.8 x10^3/uL (4.0-10.5)
[2023-12-28 18:42] LABS: ALBUMIN 4.1 g/dL (3.5-5.0); ANION GAP 9.1 MEQ/L (5-15); BILIRUBIN,TOTAL 0.6 mg/dL (0.2-1.3); Creatinine 1 0.87 mg/dL (0.66-1.25); Potassium 4.3 mmol/L (3.5-5.1); Total Protein 6.8 g/dL (6.3-8.2)
[2023-12-28] MEDS ORDERED: NITRO-BID 2% UD PACKETS ONE (19:37)
[2023-12-28] MEDS: NITRO-BID 2% UD PACKETS TOP ONE (19:40)
--- NOTE | 2023-12-28 21:21 | PCM.HP ---
History of Present Illness - Chief Complaint Chief Complaint: Chest pain, ACS History of Present Illness: is a 58 year old male with HTN, HLD, CAD s/p CABG and stents (x9), DM2 who presents with diffuse pain, including his chest. Patient was seen at [facility] for the same today. Patient had a negative workup and was discharged home. Patient went home and observed his blood pressure to be elevated. Patient began to have chest pain. He called his town clerk and was advised to go to [facility]. Due to the intensity of the chest pain patient diverted to our hospital instead. No associated nausea vomiting diaphoresis chest pain is substernal no radiation. Pain is mild to moderate in intensity. No specific worsening or improving factors. During my interview, patient did not report any chest pain but states he has chronic pain including hips and back. Patient voices no other complaints or concerns at this time. - Review of Systems Constitutional: No Fever, No Chills Eyes: No Symptoms Ears, Nose, & Throat: No Symptoms Respiratory: No Cough, No Short Of Breath Cardiac: No Chest Pain, No Edema, No Syncope Abdominal/Gastrointestinal: No Abdominal Pain, No Nausea, No Vomiting, No Diarrhea Genitourinary Symptoms: No Dysuria Musculoskeletal: No Back Pain, No Neck Pain Skin: No Rash Neurological: No Dizziness, No Focal Weakness, No Sensory Changes Psychological: No Symptoms Endocrine: No Symptoms Hematologic/Lymphatic: No Symptoms Immunological/Allergic: No Symptoms Medications & Allergies Home Medications: Home Medication List Aspirin 81 mg PO DAILY 10/28/17 [History Confirmed 12/28/23] Clonidine HCl 0.1 mg [Clonidine 0.1 mg Tablet] 0.2 mg PO EVENING MEAL 10/28/17 [History Confirmed 12/28/23] Enalapril Maleate [Vasotec] 10 mg PO BID 10/28/17 [History Confirmed 12/28/23] Insulin Glargine,Hum.rec.anlog [Lantus] 30 unit SQ HS 10/28/17 [History Confirmed 12/28/23] Nitroglycerin 0.4 mg Tablet [Nitrostat 0.4 MG Tablet] 0.4 mg SL UD 10/28/17 [History Confirmed 12/28/23] Insulin Glulisine [Apidra Solostar] 14 - 17 units SQ TID 01/24/18 [History Confirmed 12/28/23] Oxycodone/APAP 5 mg/325 mg [Percocet Tablet 5/325Mg] 1 tab PO BID 01/24/18 [History Confirmed 12/28/23] Ezetimibe 10 mg [Zetia 10 MG] 10 mg PO DAILY 03/28/18 [History Confirmed 12/28/23] Omeprazole 20 MG [Prilosec 20 mg] 20 mg PO BID 03/28/18 [History Confirmed 12/28/23] Ranolazine 500 MG [Ranexa 500 MG] 500 mg PO BID 03/28/18 [History Confirmed 12/28/23] Atorvastatin Calcium [Lipitor] 80 mg PO DAILY 06/20/18 [History Confirmed 12/28/23] clonazePAM [Clonazepam] 0.5 mg PO QAM 06/20/18 [History Confirmed 12/28/23] clonazePAM [Clonazepam] 1 mg PO HS 08/29/18 [History Confirmed 12/28/23] Clopidogrel Bisulfate [PLAVIX Tablet] 75 mg PO DAILY 08/30/18 [History Confirmed 12/28/23] Lisinopril 10 mg [Zestril 10 MG] 10 mg PO WEEKLY 12/28/23 [History Confirmed 12/28/23] Semaglutide [Ozempic] 0.25 mg SQ DAILY 12/28/23 [History Confirmed 12/28/23] Allergies/Adverse Reactions: Allergies Allergy/AdvReac Type Severity Reaction Status Date / Time Fish Containing Products Allergy Severe Shortness Verified 06/20/18 21:06 of Breath moxifloxacin HCl Allergy Intermediate Hives Verified 06/20/18 21:06 [From Avelox] cephalexin [From Keflex] Allergy Unknown Verified 06/20/18 21:06 ciprofloxacin [From Cipro] Allergy Unknown Verified 06/20/18 21:06 fish oil Allergy Unknown Verified 06/20/18 21:06 lithium Allergy Unknown Verified 06/20/18 21:06 moxifloxacin [From Avelox] Allergy Unknown Verified 06/20/18 21:06 onion Allergy Unknown Verified 06/20/18 21:06 Sulfa (Sulfonamide Allergy Unknown Verified 06/20/18 21:06 Antibiotics) - Past Medical History Past Medical History: Yes Neurological History: No Pertinent History ENT History: Macular Degeneration Cardiac History: Angina, High Cholesterol, Hypertension Respiratory History: Bronchitis, COPD Endocrine Medical History: No Pertinent History, Diabetes Type II Musculoskelatal History: Fibromyalgia, Osteoporosis GI Medical History: Diverticulitis, Ulcer, GERD, Pancreatitis, Gallbladder Disease History: Bladder Cancer Pyscho-Social History: Anxiety Male Reproductive Disorders: No Pertinent History Comment: OBESITY; CABG 2018, CARDIA STENTS 2016,2017 (HAS HAD 9 PLACED), CHOLECYSTECTOMY (05/2019) - Past Surgical History Past Surgical History: Yes Neuro Surgical History: No Pertinent History Cardiac History: CABG, Cardiac Stent, Cardiac Catheterization Respiratory Surgery: Other GI Surgical History: No Pertinent History Genitourinary Surgical Hx: No Pertinent History Musculskeletal Surgical Hx: Orthopedic Surgery, Amputation Male Surgical History: Testicular Surgery Other Surgical History: Rt knee, left ankle reconstructed, Significant Family History: no pertinent family hx - Social History Smoking Status: Former smoker How long have you smoked: 20 years Exposure to second hand smoke: No Alcohol: None Drug Use: none - Social Determinants of Health Will the patient participate in the screening: Yes Do you worry about a steady place to live?: No Do you have any problems with any of the following?: No known problems In the past 12 months,have you had to go without utilities?: No Have you or anyone in your house had to go without enough: No Transportation Issues: No Has anyone in your support network made you feel unsafe?: No Does the patient want assistance with any of the above?: No - Physical Exam Vital Signs: Vital Signs - 24 hr Temp Pulse Pulse Resp BP BP Pulse Ox 12/28/23 20:20 97.4 F 65 19 141/83 99 12/28/23 19:38 96 12/28/23 19:00 72 12 134/87 97 12/28/23 18:30 72 14 119/79 98 12/28/23 18:10 96 12/28/23 18:00 72 15 112/70 94 L 12/28/23 17:09 97.1 F 76 76 18 98 General Appearance: no apparent distress, alert Neurologic Exam: alert, oriented x 3, cooperative, normal mood/affect, nml cerebellar function, nml station & gait, sensation nml, No motor deficits Eye Exam: PERRL/EOMI, eyes nml inspection Ears, Nose, Throat Exam: normal ENT inspection, TMs normal, pharynx normal, moist mucous membranes Neck Exam: normal inspection, non-tender, supple, full range of motion Respiratory Exam: normal breath sounds, lungs clear, No respiratory distress Cardiovascular Exam: regular rate/rhythm, normal heart sounds, normal peripheral pulses Gastrointestinal/Abdomen Exam: soft, normal bowel sounds, No tenderness, No mass Back Exam: normal inspection, normal range of motion, No CVA tenderness, No vertebral tenderness Extremity Exam: normal inspection, normal range of motion, pelvis stable Skin Exam: normal color, warm, dry, No rash Lymphatic Exam: No adenopathy Results - Labs Lab/Micro Results: Lab Results-Last 24 Hours 12/28/23 12/28/23 12/28/23 Range/Units 18:15 18:15 18:15 WBC 6.8 (4.0-10.5) x10^3/uL RBC 4.51 (4.1-5.6) x10^6/uL Hgb 13.6 (12.5-18.0) g/dL Hct 41.1 L (42-50) % MCV 91.1 (78-100) fL MCH 30.2 (26-32) pg MCHC 33.1 (32-36) g/dL RDW 12.1 (11.5-14.0) % Plt Count 232 (150-450) x10^3/uL MPV 9.0 (7.5-11.0) fL Gran % 66.3 H (36.0-66.0) % Immature Gran % (Auto) 0.4 (0.00-0.4) % Nucleat RBC Rel Count 0.0 (0.00-0.1) % Eos # (Auto) 0.08 (0-0.5) x10^3/uL Immature Gran # (Auto) 0.03 (0.00-0.03) x10^3u/L Absolute Lymphs (auto) 1.65 (1.0-4.6) x10^3/uL Absolute Monos (auto) 0.49 (0.0-1.3) x10^3/uL Absolute Nucleated RBC 0.00 (0.00-0.01) x10^3u/L Lymphocytes % 24.4 (24.0-44.0) % Monocytes % 7.3 (0.0-12.0) % Eosinophils % 1.2 (0.00-5.0) % Basophils % 0.4 (0.0-0.4) % Absolute Granulocytes 4.47 (1.4-6.9) x10^3/uL Basophils # 0.03 (0-0.4) x10^3/uL D-Dimer 0.46 (0.0-0.50) mg/L Sodium 136 L (137-145) mmol/L Potassium 4.3 (3.5-5.1) mmol/L Chloride 104 (98-107) mmol/L Carbon Dioxide 27 (22-30) mmol/L Anion Gap 9.1 (5-15) MEQ/L BUN 14 (9-20) mg/dL Creatinine 0.87 (0.66-1.25) mg/dL Estimated GFR 100.0 ML/MIN Glucose 165 H (74-106) mg/dL Calcium 9.0 (8.4-10.2) mg/dL Total Bilirubin 0.60 (0.2-1.3) mg/dL AST 22 (17-59) U/L ALT 31 (0-50) U/L Alkaline Phosphatase 70 (38-126) U/L Troponin I (0.000-0.034) ng/mL NT-Pro-B Natriuret Pep (<300) pg/mL Serum Total Protein 6.8 (6.3-8.2) g/dL Albumin 4.1 (3.5-5.0) g/dL 12/28/23 12/28/23 Range/Units 18:15 18:15 WBC (4.0-10.5) x10^3/uL RBC (4.1-5.6) x10^6/uL Hgb (12.5-18.0) g/dL Hct (42-50) % MCV (78-100) fL MCH (26-32) pg MCHC (32-36) g/dL RDW (11.5-14.0) % Plt Count (150-450) x10^3/uL MPV (7.5-11.0) fL Gran % (36.0-66.0) % Immature Gran % (Auto) (0.00-0.4) % Nucleat RBC Rel Count (0.00-0.1) % Eos # (Auto) (0-0.5) x10^3/uL Immature Gran # (Auto) (0.00-0.03) x10^3u/L Absolute Lymphs (auto) (1.0-4.6) x10^3/uL Absolute Monos (auto) (0.0-1.3) x10^3/uL Absolute Nucleated RBC (0.00-0.01) x10^3u/L Lymphocytes % (24.0-44.0) % Monocytes % (0.0-12.0) % Eosinophils % (0.00-5.0) % Basophils % (0.0-0.4) % Absolute Granulocytes (1.4-6.9) x10^3/uL Basophils # (0-0.4) x10^3/uL D-Dimer (0.0-0.50) mg/L Sodium (137-145) mmol/L Potassium (3.5-5.1) mmol/L Chloride (98-107) mmol/L Carbon Dioxide (22-30) mmol/L Anion Gap (5-15) MEQ/L BUN (9-20) mg/dL Creatinine (0.66-1.25) mg/dL Estimated GFR ML/MIN Glucose (74-106) mg/dL Calcium (8.4-10.2) mg/dL Total Bilirubin (0.2-1.3) mg/dL AST (17-59) U/L ALT (0-50) U/L Alkaline Phosphatase (38-126) U/L Troponin I < 0.012 (0.000-0.034) ng/mL NT-Pro-B Natriuret Pep 34.7 (<300) pg/mL Serum Total Protein (6.3-8.2) g/dL Albumin (3.5-5.0) g/dL Assessment/Plan (1) Chest pain Current Visit: Yes Status: Acute Onset Date: ~08/29/18 Assessment & Plan: 1. Initial trop is negative, cycle one more time 2. EKG wnl 3. BP control 4. Has town clerk outpatient visit on 12/29 at 3:45 pm Code(s): R07.9 - CHEST PAIN, UNSPECIFIED Telemedicine Encounter - Telemedicine Encounter Telemedicine Encounter: The entirety of this encounter was performed via Telemedicine"
[2023-12-28] MEDS ORDERED: Apresoline 25 MG TABLET PO PRN (23:44)
[2023-12-28] MEDS ORDERED: Valium 5 MG PO PRN (23:50)
[2023-12-29 02:34] LABS: Hematocrit 39.8 % (42-50); Hemoglobin 12.9 g/dL (12.5-18.0); Mean Cell Volume 91.7 fL (78-100); Mean Corpuscular Hemoglobin 29.7 pg (26-32); Mean Corpuscular Hgb Concent. 32.4 g/dL (32-36); Mean Platelet Volume 8.8 fL (7.5-11.0); Platelet Count 227 x10^3/uL (150-450); Red Blood Count 4.34 x10^6/uL (4.1-5.6); Red Cell Distribution Width 12.2 % (11.5-14.0); White Blood Count 8.1 x10^3/uL (4.0-10.5)
[2023-12-29 02:57] LABS: ALBUMIN 3.9 g/dL (3.5-5.0); ANION GAP 7.8 MEQ/L (5-15); BILIRUBIN,TOTAL 0.7 mg/dL (0.2-1.3); Calcium 9.2 mg/dL (8.4-10.2); Creatinine 1 0.89 mg/dL (0.66-1.25); EST GLOMERULAR FILTRATION RATE 99.3 ML/MIN; PREALBUMIN 26.78 mg/dL (17.6-36.0); Potassium 3.7 mmol/L (3.5-5.1); Total Protein 6.7 g/dL (6.3-8.2)
[2023-12-29] MEDS: HUMALOG SQ SCH (08:15)
[2023-12-29] MEDS: PERCOCET TABLET 5/325MG PO PRN (08:20)
[2023-12-29] MEDS: Protonix 40MG Tablet PO SCH (09:21)
[2023-12-29] MEDS: Valium 5 MG PO SCH (09:25)
[2023-12-29] MEDS: Zestril 10 MG PO SCH (09:25)
[2023-12-29] MEDS: Ranexa 500 MG PO SCH (09:25)
[2023-12-29] MEDS ORDERED: Apresoline 25 MG TABLET PO SCH (10:00)
[2023-12-29] MEDS: Pepcid 20 MG PO SCH (10:11)
[2023-12-29] MEDS: PLAVIX Tablet PO SCH (10:24)
[2023-12-29 11:32] VITALS: BP 125/64; PULSE 67; RESP 13; TEMP 96.4; O2SAT 96
--- NOTE | 2023-12-29 11:40 | PCM.DS ---
Discharge Summary Date of Admission: 12/28/23 19:44 Date of Discharge: 12/29/23 Admitting Physician: LEXIE URRUTIA MD Primary Care Provider: MAGEN WAKEFIELD MD Allergies Allergies Fish Containing Products Allergy (Severe, Verified 06/20/18 21:06) Shortness of Breath fish protein causes swelling and SOB moxifloxacin HCl [From Avelox] Allergy (Intermediate, Verified 06/20/18 21:06) Hives cephalexin [From Keflex] Allergy (Unknown, Verified 06/20/18 21:06) ciprofloxacin [From Cipro] Allergy (Unknown, Verified 06/20/18 21:06) fish oil Allergy (Unknown, Verified 06/20/18 21:06) lithium Allergy (Unknown, Verified 06/20/18 21:06) moxifloxacin [From Avelox] Allergy (Unknown, Verified 06/20/18 21:06) onion Allergy (Unknown, Verified 06/20/18 21:06) Sulfa (Sulfonamide Antibiotics) Allergy (Unknown, Verified 06/20/18 21:06) Hospital Summary - Hospital Course Hospital Course: is a 58 year old male with active bladder CA, HTN, HLD, CAD s/p CABG and stents (x9), DM2 who presented with diffuse pain, including his chest. Patient was seen at [facility] for the same on 12/29/23. Patient had a negative workup and was discharged home. Patient went home and observed his blood pressure to be elevated. Patient began to have chest pain. He called his boilermaker and was advised to go to [facility]. Due to the intensity of the chest pain patient diverted to our hospital instead. No associated nausea vomiting diaphoresis chest pain was substernal no radiation. Pain was mild to moderate in intensity. No specific worsening or improving factors. He has had no overnight events. BP stable, and denies any further CP since admission. He has an appointment to f/u with cardiology today and would like to go to his appointment. Trop x3 negative. He denies any further concerns at this time. - Vitals & Intake/Output Vital Signs: Vital Signs Temperature 96.4 F 12/29/23 11:31 Pulse Rate 67 12/29/23 11:31 Respiratory Rate 13 12/29/23 11:31 Blood Pressure 125/64 12/29/23 11:31 O2 Sat by Pulse Oximetry 96 12/29/23 11:31 Intake & Output: Intake & Output 12/26/23 12/27/23 12/28/23 12/29/23 11:59 11:59 11:59 11:59 Intake Total 580 Output Total 2350 Balance -1770 Weight 157.3 kg - Lab Result Diagrams: 12/29/23 02:15 12/29/23 02:15 Lab Results-Last 24 Hrs: Lab Results-Last 24 Hours 12/28/23 12/28/23 12/28/23 Range/Units 18:15 18:15 18:15 WBC 6.8 (4.0-10.5) x10^3/uL RBC 4.51 (4.1-5.6) x10^6/uL Hgb 13.6 (12.5-18.0) g/dL Hct 41.1 L (42-50) % MCV 91.1 (78-100) fL MCH 30.2 (26-32) pg MCHC 33.1 (32-36) g/dL RDW 12.1 (11.5-14.0) % Plt Count 232 (150-450) x10^3/uL MPV 9.0 (7.5-11.0) fL Gran % 66.3 H (36.0-66.0) % Immature Gran % (Auto) 0.4 (0.00-0.4) % Nucleat RBC Rel Count 0.0 (0.00-0.1) % Eos # (Auto) 0.08 (0-0.5) x10^3/uL Immature Gran # (Auto) 0.03 (0.00-0.03) x10^3u/L Absolute Lymphs (auto) 1.65 (1.0-4.6) x10^3/uL Absolute Monos (auto) 0.49 (0.0-1.3) x10^3/uL Absolute Nucleated RBC 0.00 (0.00-0.01) x10^3u/L Lymphocytes % 24.4 (24.0-44.0) % Monocytes % 7.3 (0.0-12.0) % Eosinophils % 1.2 (0.00-5.0) % Basophils % 0.4 (0.0-0.4) % Absolute Granulocytes 4.47 (1.4-6.9) x10^3/uL Basophils # 0.03 (0-0.4) x10^3/uL D-Dimer 0.46 (0.0-0.50) mg/L Sodium 136 L (137-145) mmol/L Potassium 4.3 (3.5-5.1) mmol/L Chloride 104 (98-107) mmol/L Carbon Dioxide 27 (22-30) mmol/L Anion Gap 9.1 (5-15) MEQ/L BUN 14 (9-20) mg/dL Creatinine 0.87 (0.66-1.25) mg/dL Estimated GFR 100.0 ML/MIN Glucose 165 H (74-106) mg/dL Hemoglobin A1c (4.5-6.0) % Calcium 9.0 (8.4-10.2) mg/dL Total Bilirubin 0.60 (0.2-1.3) mg/dL AST 22 (17-59) U/L ALT 31 (0-50) U/L Alkaline Phosphatase 70 (38-126) U/L Troponin I (0.000-0.034) ng/mL NT-Pro-B Natriuret Pep (<300) pg/mL Serum Total Protein 6.8 (6.3-8.2) g/dL Albumin 4.1 (3.5-5.0) g/dL Prealbumin (17.6-36.0) mg/dL 12/28/23 12/28/23 12/28/23 Range/Units 18:15 18:15 22:02 WBC (4.0-10.5) x10^3/uL RBC (4.1-5.6) x10^6/uL Hgb (12.5-18.0) g/dL Hct (42-50) % MCV (78-100) fL MCH (26-32) pg MCHC (32-36) g/dL RDW (11.5-14.0) % Plt Count (150-450) x10^3/uL MPV (7.5-11.0) fL Gran % (36.0-66.0) % Immature Gran % (Auto) (0.00-0.4) % Nucleat RBC Rel Count (0.00-0.1) % Eos # (Auto) (0-0.5) x10^3/uL Immature Gran # (Auto) (0.00-0.03) x10^3u/L Absolute Lymphs (auto) (1.0-4.6) x10^3/uL Absolute Monos (auto) (0.0-1.3) x10^3/uL Absolute Nucleated RBC (0.00-0.01) x10^3u/L Lymphocytes % (24.0-44.0) % Monocytes % (0.0-12.0) % Eosinophils % (0.00-5.0) % Basophils % (0.0-0.4) % Absolute Granulocytes (1.4-6.9) x10^3/uL Basophils # (0-0.4) x10^3/uL D-Dimer (0.0-0.50) mg/L Sodium (137-145) mmol/L Potassium (3.5-5.1) mmol/L Chloride (98-107) mmol/L Carbon Dioxide (22-30) mmol/L Anion Gap (5-15) MEQ/L BUN (9-20) mg/dL Creatinine (0.66-1.25) mg/dL Estimated GFR ML/MIN Glucose (74-106) mg/dL Hemoglobin A1c (4.5-6.0) % Calcium (8.4-10.2) mg/dL Total Bilirubin (0.2-1.3) mg/dL AST (17-59) U/L ALT (0-50) U/L Alkaline Phosphatase (38-126) U/L Troponin I < 0.012 < 0.012 (0.000-0.034) ng/mL NT-Pro-B Natriuret Pep 34.7 (<300) pg/mL Serum Total Protein (6.3-8.2) g/dL Albumin (3.5-5.0) g/dL Prealbumin (17.6-36.0) mg/dL 12/29/23 12/29/23 12/29/23 Range/Units 02:15 02:15 02:15 WBC 8.1 (4.0-10.5) x10^3/uL RBC 4.34 (4.1-5.6) x10^6/uL Hgb 12.9 (12.5-18.0) g/dL Hct 39.8 L (42-50) % MCV 91.7 (78-100) fL MCH 29.7 (26-32) pg MCHC 32.4 (32-36) g/dL RDW 12.2 (11.5-14.0) % Plt Count 227 (150-450) x10^3/uL MPV 8.8 (7.5-11.0) fL Gran % (36.0-66.0) % Immature Gran % (Auto) (0.00-0.4) % Nucleat RBC Rel Count (0.00-0.1) % Eos # (Auto) (0-0.5) x10^3/uL Immature Gran # (Auto) (0.00-0.03) x10^3u/L Absolute Lymphs (auto) (1.0-4.6) x10^3/uL Absolute Monos (auto) (0.0-1.3) x10^3/uL Absolute Nucleated RBC (0.00-0.01) x10^3u/L Lymphocytes % (24.0-44.0) % Monocytes % (0.0-12.0) % Eosinophils % (0.00-5.0) % Basophils % (0.0-0.4) % Absolute Granulocytes (1.4-6.9) x10^3/uL Basophils # (0-0.4) x10^3/uL D-Dimer (0.0-0.50) mg/L Sodium 138 (137-145) mmol/L Potassium 3.7 (3.5-5.1) mmol/L Chloride 103 (98-107) mmol/L Carbon Dioxide 31 H (22-30) mmol/L Anion Gap 7.8 (5-15) MEQ/L BUN 13 (9-20) mg/dL Creatinine 0.89 (0.66-1.25) mg/dL Estimated GFR 99.3 ML/MIN Glucose 111 H (74-106) mg/dL Hemoglobin A1c (4.5-6.0) % Calcium 9.2 (8.4-10.2) mg/dL Total Bilirubin 0.70 (0.2-1.3) mg/dL AST 22 (17-59) U/L ALT 30 (0-50) U/L Alkaline Phosphatase 64 (38-126) U/L Troponin I < 0.012 (0.000-0.034) ng/mL NT-Pro-B Natriuret Pep (<300) pg/mL Serum Total Protein 6.7 (6.3-8.2) g/dL Albumin 3.9 (3.5-5.0) g/dL Prealbumin 26.78 (17.6-36.0) mg/dL 12/29/23 Range/Units 02:15 WBC (4.0-10.5) x10^3/uL RBC (4.1-5.6) x10^6/uL Hgb (12.5-18.0) g/dL Hct (42-50) % MCV (78-100) fL MCH (26-32) pg MCHC (32-36) g/dL RDW (11.5-14.0) % Plt Count (150-450) x10^3/uL MPV (7.5-11.0) fL Gran % (36.0-66.0) % Immature Gran % (Auto) (0.00-0.4) % Nucleat RBC Rel Count (0.00-0.1) % Eos # (Auto) (0-0.5) x10^3/uL Immature Gran # (Auto) (0.00-0.03) x10^3u/L Absolute Lymphs (auto) (1.0-4.6) x10^3/uL Absolute Monos (auto) (0.0-1.3) x10^3/uL Absolute Nucleated RBC (0.00-0.01) x10^3u/L Lymphocytes % (24.0-44.0) % Monocytes % (0.0-12.0) % Eosinophils % (0.00-5.0) % Basophils % (0.0-0.4) % Absolute Granulocytes (1.4-6.9) x10^3/uL Basophils # (0-0.4) x10^3/uL D-Dimer (0.0-0.50) mg/L Sodium (137-145) mmol/L Potassium (3.5-5.1) mmol/L Chloride (98-107) mmol/L Carbon Dioxide (22-30) mmol/L Anion Gap (5-15) MEQ/L BUN (9-20) mg/dL Creatinine (0.66-1.25) mg/dL Estimated GFR ML/MIN Glucose (74-106) mg/dL Hemoglobin A1c 8.52 H (4.5-6.0) % Calcium (8.4-10.2) mg/dL Total Bilirubin (0.2-1.3) mg/dL AST (17-59) U/L ALT (0-50) U/L Alkaline Phosphatase (38-126) U/L Troponin I (0.000-0.034) ng/mL NT-Pro-B Natriuret Pep (<300) pg/mL Serum Total Protein (6.3-8.2) g/dL Albumin (3.5-5.0) g/dL Prealbumin (17.6-36.0) mg/dL Micro Results-Entire Visit: Accuchecks Date 12/29/23 Date 12/29/23 Time 11:33 Time 07:03 Discharge Exam General Appearance: no apparent distress, alert, obese Neurologic Exam: alert, oriented x 3, cooperative, normal mood/affect, nml cerebellar function, sensation nml, No motor deficits Eye Exam: PERRL, EOMI, eyes nml inspection Ears, Nose, Throat Exam: normal ENT inspection, pharynx normal, moist mucous membranes Neck Exam: normal inspection, non-tender, supple, full range of motion Respiratory Exam: normal breath sounds, lungs clear, No respiratory distress Cardiovascular Exam: regular rate/rhythm, normal heart sounds Gastrointestinal/Abdomen Exam: soft, No tenderness, No mass Male Genitalia Exam: deferred Rectal Exam: deferred Back Exam: normal inspection, normal range of motion, No CVA tenderness, No vertebral tenderness Extremity Exam: normal inspection, normal range of motion Skin Exam: normal color, warm, dry Final Diagnosis/Problem List - Final Discharge Diagnosis/Problem (1) ACS (acute coronary syndrome) Current Visit: Yes Status: Acute Assessment & Plan: - trop x3 negative - EKG reviewed - tele - BP control Code(s): I24.9 - ACUTE ISCHEMIC HEART DISEASE, UNSPECIFIED (2) Chest pain Current Visit: Yes Status: Acute Onset Date: ~08/29/18 Assessment & Plan: - resolved - f/u with cardiology today Code(s): R07.9 - CHEST PAIN, UNSPECIFIED (3) Diabetes Current Visit: No Status: Chronic Assessment & Plan: - A1C 8.52- uncontrolled - accuchecks ac/hs- Humalog s/s - Carb controlled diet Code(s): E11.9 - TYPE 2 DIABETES MELLITUS WITHOUT COMPLICATIONS (4) Morbid obesity with BMI of 45.0-49.9, adult Current Visit: Yes Status: Chronic Assessment & Plan: - advised ADA diet and exercise control per cardiology recommendations. Code(s): E66.01 - MORBID (SEVERE) OBESITY DUE TO EXCESS CALORIES; Z68.42 - BODY MASS INDEX [BMI] 45.0-49.9, ADULT (5) HTN (hypertension) Current Visit: Yes Status: Chronic Assessment & Plan: - BP controlled - Continue home meds Code(s): I10 - ESSENTIAL (PRIMARY) HYPERTENSION - Discharge Discharge Date: 12/29/23 Disposition: Home, Self-Care Condition: Stable Prescriptions: Continue Clonidine HCl 0.1 mg [Clonidine 0.1 mg Tablet] 0.2 mg PO EVENING MEAL Insulin Glargine,Hum.rec.anlog [Lantus] 30 unit SQ HS Enalapril Maleate [Vasotec] 10 mg PO BID Aspirin 81 mg PO DAILY Nitroglycerin 0.4 mg Tablet [Nitrostat 0.4 MG Tablet] 0.4 mg SL UD Insulin Glulisine [Apidra Solostar] 14 - 17 units SQ TID Oxycodone/APAP 5 mg/325 mg [Percocet Tablet 5/325Mg] 1 tab PO BID Ranolazine 500 MG [Ranexa 500 MG] 500 mg PO BID Ezetimibe 10 mg [Zetia 10 MG] 10 mg PO DAILY Omeprazole 20 MG [Prilosec 20 mg] 20 mg PO BID clonazePAM [Clonazepam] 0.5 mg PO QAM Atorvastatin Calcium [Lipitor] 80 mg PO DAILY clonazePAM [Clonazepam] 1 mg PO HS Clopidogrel Bisulfate [PLAVIX Tablet] 75 mg PO DAILY Lisinopril 10 mg [Zestril 10 MG] 10 mg PO WEEKLY Semaglutide [Ozempic] 0.25 mg SQ DAILY Instructions: Chest Pain (DC) Forms: Discharge Instructions
[2023-12-29] MEDS: NORVASC 5 MG PO SCH (11:48)
[2023-12-29] MEDS: Imdur 60MG PO SCH (11:48)
[2023-12-29] MEDS ORDERED: ZOCOR 20MG PO SCH (22:00)
== END 2023-12-29 12:26 | disposition home or self-care (01) ==
LOC: ED 17:08 → MED SURG 19:44
PROVIDERS: ADMIT Student in an Organized Health Care Education/Training Program; ATTEND Student in an Organized Health Care Education/Training Program
DX: I24.9 Acute ischemic heart disease, unspecified (principal); R07.9 Chest pain, unspecified; E11.9 Type 2 diabetes mellitus without complications; E66.01 Morbid (severe) obesity due to excess calories; I10 Essential (primary) hypertension; E78.5 Hyperlipidemia, unspecified; I25.10 Atherosclerotic heart disease of native coronary artery without angina pectoris; Z68.42 Body mass index [BMI] 45.0-49.9, adult; Z79.01 Long term (current) use of anticoagulants; Z95.0 Presence of cardiac pacemaker; Z79.899 Other long term (current) drug therapy; Z20.828 Contact with and (suspected) exposure to other viral communicable diseases; Z85.51 Personal history of malignant neoplasm of bladder
CPT/HCPCS: 36415; 80053; 83036; 83880; 84134; 84484; 85025; 85027; 85379; 93041; 94760; 99285; Q3014; 93268; J1817; A9270-GY; G0378

== ENCOUNTER 2024-09-21 17:28 | Emergency (ER) | payer MEDICAID ==
[2024-09-21 18:01] VITALS: TEMP 97.9
--- NOTE | 2024-09-21 18:48 | ERPHSYRPT ---
- History of Present Illness Source: patient Exam Limitations: no limitations Patient Subjective Stated Complaint: Pt c/o of left shoulder pain and pain under his left breast that radiates to the lateral side ribs and down, pt had surgery on September 03 to remove bladder cancer Triage Nursing Assessment: Pt brought to the ER by his , vitals wnl, rates pain as 8/10, pulses normal, skin n/w/d, pt thinks that it may be his rotator cuff and possible aggravated it during surgery, pain in the left lateral ribs and under the left breast, denies injury, doesn't appear to be in any distress Hx Tetanus, Diphtheria Vaccination/Date Given: No (2010) Hx Influenza Vaccination/Date Given: No Hx Pneumococcal Vaccination/Date Given: No <CLAUDIO BRITO - Last Filed: 09/21/24 18:44> <GISELL COVARRUBIAS - Last Filed: 09/21/24 19:41> - History of Present Illness Time Seen by Provider: 09/21/24 17:40 Physician History: 59-year-old male with multiple medical problems including coronary artery disease, stenting/CABG, diabetes mellitus, hypertension, recent bladder cancer surgery almost 2 weeks ago presented in the ER with almost 10 days history of left shoulder neck and left upper/lateral chest wall pain with progressive worsening. Patient is taking pain medication with no significant relief. Reports exacerbation of pain with movements of the shoulder and palpation. Patient thinks it is his rotator cuff injury as it does not seems to be like cardiac or pulmonary etiology. No fever or chills reported. Minimal cough at times. Denies any fall or trauma. (CLAUDIO BRITO) Allergies/Adverse Reactions: Fish Containing Products Allergy (Severe, Verified 09/21/24 18:03) Shortness of Breath fish protein causes swelling and SOB moxifloxacin HCl [From Avelox] Allergy (Intermediate, Verified 09/21/24 18:03) Hives ciprofloxacin [From Cipro] Allergy (Unknown, Verified 09/21/24 18:03) fish oil Allergy (Unknown, Verified 09/21/24 18:03) lithium Allergy (Unknown, Verified 09/21/24 18:03) moxifloxacin [From Avelox] Allergy (Unknown, Verified 09/21/24 18:03) onion Allergy (Unknown, Verified 09/21/24 18:03) Sulfa (Sulfonamide Antibiotics) Allergy (Unknown, Verified 09/21/24 18:03) gentamicin Allergy (Verified 09/21/24 18:03) Home Medications: Nitroglycerin 0.4 mg Tablet [Nitrostat 0.4 MG Tablet] 0.4 mg SL UD 10/09 11/24 [History] Oxycodone/APAP 5 mg/325 mg [Percocet Tablet 5/325Mg] 1 tab PO QID PRN 01/24/18 [History] Ezetimibe 10 mg [Zetia 10 MG] 10 mg PO DAILY 03/28/18 [History] Ranolazine 500 MG [Ranexa 500 MG] 1,000 mg PO BID 03/28/18 [History] Atorvastatin Calcium [Lipitor] 80 mg PO DAILY 06/20/18 [History] Clopidogrel Bisulfate [PLAVIX Tablet] 75 mg PO DAILY 08/30/18 [History] Lisinopril 10 mg [Zestril 10 MG] 20 mg PO BID 12/28/23 [History] Amlodipine Besylate 5 mg [Norvasc 5 mg] 5 mg PO DAILY 09/21/24 [History] Diazepam 5 mg [Valium 5 MG] 5 mg PO BID 09/21/24 [History] Famotidine 40 mg PO DAILY 09/21/24 [History] Insulin Degludec [Tresiba Flextouch U-200] 110 units SQ HS 09/21/24 [History] Insulin Lispro [Humalog Kwikpen U-100] 30 unit SQ TID 09/21/24 [History] Isosorbide Mononitrate [Isosorbide Mononitrate ER] 60 mg PO DAILY 09/21/24 [History] PANTOPRAZOLE 40 mg Tablet [Protonix 40MG Tablet] 40 mg PO BID 09/21/24 [History] Travel Risk - International Travel Have you traveled outside of the country in past 3 weeks: No - Emerging Infectious Disease Are you exhibiting symptoms associated with any current EIDs: No <CLAUDIO BRITO - Last Filed: 09/21/24 18:44> - Review of Systems Constitutional: No Symptoms Ears, Nose, & Throat: No Symptoms Respiratory: No Symptoms Cardiac: Chest Pain Abdominal/Gastrointestinal: No Symptoms Genitourinary Symptoms: No Symptoms Musculoskeletal: Myalgias Skin: No Symptoms Neurological: No Symptoms Psychological: No Symptoms Endocrine: No Symptoms Hematologic/Lymphatic: No Symptoms <CLAUDIO BRITO - Last Filed: 09/21/24 18:44> - Past Medical History Pertinent Past Medical History: Yes Neurological History: No Pertinent History ENT History: Macular Degeneration Cardiac History: Angina, High Cholesterol, Hypertension Respiratory History: Bronchitis, COPD Endocrine Medical History: No Pertinent History, Diabetes Type II Musculoskeletal History: Fibromyalgia, Osteoporosis GI Medical History: Diverticulitis, Ulcer, GERD, Pancreatitis, Gallbladder Disease History: Bladder Cancer Psycho-Social History: Anxiety Male Reproductive Disorders: No Pertinent History Other Medical History: OBESITY; CABG 2017, CARDIA STENTS 2016,2017 (HAS HAD 9 PLACED), CHOLECYSTECTOMY (05/2019) - Past Surgical History Past Surgical History: Yes Neuro Surgical History: No Pertinent History Cardiac: CABG, Cardiac Stent, Cardiac Catheterization Respiratory: Other Gastrointestinal: No Pertinent History Genitourinary: Other Musculoskeletal: Orthopedic Surgery, Amputation Male Surgical History: Testicular Surgery Other Surgical History: Rt knee, left ankle reconstructed, bladder cancer Significant Family History: no pertinent family hx - Social History Smoking Status: Former smoker How long have you smoked: 20 years Exposure to second hand smoke: No Alcohol Use: Socially Drug Use: none Patient Lives Alone: No - Social Determinants of Health Will the patient participate in the screening: Yes Do you worry about a steady place to live?: No Do you have any problems with any of the following?: No known problems In the past 12 months,have you had to go without utilities?: No Transportation Issues: No Has anyone in your support network made you feel unsafe?: No Have you or anyone in your house had to go without enough: No <CLAUDIO BRITO - Last Filed: 09/21/24 18:44> - Physical Exam General Appearance: no apparent distress, alert Ears, Nose, Throat Exam: normal ENT inspection Neck Exam: normal inspection, supple, full range of motion, other (Tenderness trapezius area, left shoulder, upper and lower lateral chest wall) Respiratory Exam: normal breath sounds, chest tenderness, lungs clear Cardiovascular Exam: regular rate/rhythm, normal heart sounds Gastrointestinal/Abdomen Exam: soft, normal bowel sounds, No tenderness Extremity Exam: normal range of motion Neurologic Exam: alert, oriented x 3, cooperative Skin Exam: normal color SpO2 Interpretation: normal SpO2: 96 O2 Delivery: Room Air <CLAUDIO BRITO - Last Filed: 09/21/24 18:44> - Nursing Vital Signs Nursing Vital Signs: Initial Vital Signs Temperature 97.9 F 09/21/24 17:39 Pulse Rate 74 09/21/24 17:39 Blood Pressure 133/80 09/21/24 17:39 O2 Sat by Pulse Oximetry 96 09/21/24 17:39 Pain Scale Pain Intensity 4 - Course Nursing assessment & vital signs reviewed: Yes EKG Interpreted by Me: Sinus Rhythm - Radiology Exams Shoulder X-ray Interpretation: Interpreted by me, Reviewed by me, Negative, No Fracture, No Subluxation Chest X-ray Interpretation: Interpreted by me, Reviewed by me (CHF changes) <GISELL COVARRUBIAS - Last Filed: 09/21/24 19:41> Ordered Tests: Active Orders 24 hr Category Date Time Status Vending Supervisor STAT Care 09/21/24 18:30 Active EKG-ER Only STAT Care 09/21/24 18:30 Active IV Insertion STAT Care 09/21/24 18:30 Active Pulse Oximetry (ED) STAT Care 09/21/24 18:30 Active CHEST 1 VIEW (PORTABLE) Stat Exams 09/21/24 18:30 Taken SHOULDER Stat Exams 09/21/24 18:31 Taken CBC W DIFF Stat Lab 09/21/24 18:46 Completed CMP Stat Lab 09/21/24 18:46 Completed NT PRO BNPII Stat Lab 09/21/24 18:46 Completed TROPONIN Q4H Lab 09/21/24 18:46 Completed TROPONIN Q4H Lab 09/21/24 22:30 Ordered TROPONIN Q4H Lab 09/22/24 02:30 Ordered Medication Summary Discontinued Medications Generic Name Dose Route Start Last Admin Trade Name Freq PRN Reason Stop Dose Admin Morphine Sulfate 4 mg 09/21/24 18:30 09/21/24 19:14 Morphine Sulfate 4 Mg/Ml Injection IV 09/21/24 18:31 4 mg STAT ONE Administration Morphine Sulfate Confirm 09/21/24 19:12 Morphine Sulfate 4 Mg/Ml Injection Administered 09/21/24 19:13 Dose 4 mg .ROUTE .STK-MED ONE Ondansetron HCl 4 mg 09/21/24 18:30 09/21/24 19:14 Ondansetron Hcl 4 Mg/2 Ml Vial IV 09/21/24 18:31 4 mg STAT ONE Administration Ondansetron HCl Confirm 09/21/24 19:12 Ondansetron Hcl 4 Mg/2 Ml Vial Administered 09/21/24 19:13 Dose 4 mg .ROUTE .STK-MED ONE Lab/Rad Data: Laboratory Result Diagrams 09/21/24 18:46 09/21/24 18:46 Laboratory Results 09/21/24 09/21/24 09/21/24 Range/Units 18:46 18:46 18:46 WBC 8.2 (4.23-9.07) x10^3/uL RBC 4.28 L (4.63-6.08) x10^6/uL Hgb 12.7 L (13.7-17.5) g/dL Hct 38.1 L (40.1-51.0) % MCV 89.0 (79.0-92.2) fL MCH 29.7 (25.7-32.2) pg MCHC 33.3 (32.3-36.5) g/dL RDW 12.6 (11.6-14.4) % Plt Count 327 (163-337) x10^3/uL MPV 9.1 L (9.4-12.4) fL Gran % 61.8 (34.0-67.9) % Immature Gran % (Auto) 0.4 (0.001-0.429) % Nucleat RBC Rel Count 0.0 (0.00-0.2) % Eos # (Auto) 0.10 (0.04-0.54) x10^3/uL Immature Gran # (Auto) 0.03 (0.001-0.031) x10^3u/L Absolute Lymphs (auto) 2.24 (1.32-3.57) x10^3/uL Absolute Monos (auto) 0.73 (0.30-0.82) x10^3/uL Absolute Nucleated RBC 0.00 (0.00-0.012) x10^3u/L Lymphocytes % 27.5 (21.8-53.1) % Monocytes % 8.9 (5.3-12.2) % Eosinophils % 1.2 (0.8-7.0) % Basophils % 0.2 (0.2-1.2) % Absolute Granulocytes 5.04 (1.78-5.38) x10^3/uL Basophils # 0.02 (0.01-0.08) x10^3/uL Sodium 140 (135-145) mmol/L Potassium 4.2 (3.5-5.1) mmol/L Chloride 105 (98-107) mmol/L Carbon Dioxide 23 (22-30) mmol/L Anion Gap 16.3 H (5-15) MEQ/L BUN 22 H (9-20) mg/dL Creatinine 1.21 (0.66-1.25) mg/dL Estimated GFR 69.0 ML/MIN Glucose 238 H (74-106) mg/dL Calcium 9.5 (8.4-10.2) mg/dL Total Bilirubin 0.50 (0.2-1.3) mg/dL AST 25 (17-59) U/L ALT 31 (0-50) U/L Alkaline Phosphatase 74 (38-126) U/L Troponin I < 0.012 (0.000-0.033) ng/mL NT-Pro-B Natriuret Pep 110 (<300) pg/mL Serum Total Protein 7.5 (6.3-8.2) g/dL Albumin 4.2 (3.5-5.0) g/dL <CLAUDIO BRITO - Last Filed: 09/21/24 18:44> - Progress Progress: improved, pain not gone completely Counseled pt/family regarding: lab results, diagnosis, need for follow-up, rad results <GISELL COVARRUBIAS - Last Filed: 09/21/24 19:41> - Progress Progress Note: 09/21/24 18:57 Workup is pending, care is transferred to Dr. Covarrubias of my shift for reevaluation and final disposition (CLAUDIO BRITO) Medical Desision Making - Independent Historian Additional History obtained from: Spouse - Diagnostic Testing Diagnostic test were ordered, analyzed, and reviewed by me: Yes - Risk of complications Minimal Risk: Minimal risk of morbidity <GISELL COVARRUBIAS - Last Filed: 09/21/24 19:41> <CLAUDIO BRITO - Last Filed: 09/21/24 18:44> - Departure Departure Disposition: Home Critical Care Time: No <GISELL COVARRUBIAS - Last Filed: 09/21/24 19:41> - Departure Clinical Impression: Bursitis of left shoulder Condition: Stable Referrals: MAGEN WAKEFIELD MD [Primary Care Provider] - Follow up/PCP as directed Instructions: Shoulder Tendinopathy (DC), Shoulder Sprain (DC), Table Stretches for the Shoulder, Shoulder Rehab Exercises, Phase 1, Shoulder Rehab Exercises, Phase 2, Exercise Band Exercises for the Shoulder Additional Instructions: Discharge/Care Plan BETTIE ROBERTS was seen on 09/21/24 in the Emergency Room. The patient was counseled regarding Diagnosis,Lab results, Imaging studies, need for follow up and when to return to the Emergency Room. Prescriptions given: Discharge Note I have spoken with the patient and/or caregivers. I have explained the patient's condition, diagnosis and treatment plan based on the information available to me at this time. I have answered the patient's and/or caregiver's questions and addressed any concerns. The patient and/or caregivers have as good understanding of the patient's diagnosis, condition and treatment plan as can be expected at this point. The vital signs have been stable. The patient's condition is stable and appropriate for discharge from the emergency department. The patient will pursue further outpatient evaluation with the primary care physician or other designated or consulting physician as outlined in the discharge instructions. The patient and/or caregivers are agreeable to this plan of care and follow-up instructions have been explained in detail. The patient and/or caregivers have received these instruction. The patient/and or caregivers are aware that any significant change in condition or worsening of symptoms should prompt an immediate return to this or the closest emergency department or call 911. BETTIE ROBERTS was seen on 09/21/24 n the Emergency Room. At that time you were treated for an emergent condition, during your visit Laboratory, Radiology and/or other procedures may have been ordered. It is very important that you follow-up with your Primary Care Physician MAGEN WAKEFIELD MD within the next 24-48 hours to review your Emergency Room visit and the final results of testing that was ordered. Some test results such as Urine Cultures, Blood Cultures, and other cultures if ordered will not be finalized for 24-48 hours. If you do not have a Primary Care Provider please call the medical records department at [phone] to obtain a copy of your results or you may sign into our patient portal to obtain these results by visiting us @ [email or web address] and completing the following steps: 1. Click on the Patient Portal link 2. Click the Patient Self Enrollment Link to complete the enrollment form and entering your 3. Once the enrollment form is completed you will receive an email with a temporary ID and password at the email address you provided. 4. Next choose a user name and password. Your user name must be at least 4 characters long and your password must be at least 4 characters long. 5. Choose a security question from the list and provide your answer to the question. If you already have signed into the Health Portal you may access your Health Care Information 31/05 by the following steps: 1. Login to our website @ [email or web address] 2. Enter your original user name and password. FAQS The [facility] Health Portal is an online tool that contains your Lab Results, Radi ology Reports, Visit History, Discharge Instructions and Health Summary Lab and Radiology Results will not be available for 72 hours on the portal. The Portal is a secure site, passwords are encryted and URLs are re-written so they cannot be copied and pasted. You and authorized family members are the only ones who can access your Portal. Also there is a timeout feature that protects your information if you leave the Portal page open. If you have technical difficulty please use the Contact Us link on the page this will allow you to submit any questions you have regarding the Portal or you may contact the Medical Record Department at [phone] ext [phone].
[2024-09-21 18:55] LABS: Absolute Neutrophil Ct (ANC) 5.04 x10^3/uL (1.78-5.38); BASOPHIL % 0.2 % (0.2-1.2); Basophil (Absolute #) 0.02 x10^3/uL (0.01-0.08); Eosinophil % 1.2 % (0.8-7.0); Hematocrit 38.1 % (40.1-51.0); Hemoglobin 12.7 g/dL (13.7-17.5); IMMATURE GRAN # 0.03 x10^3u/L (0.001-0.031); IMMATURE GRAN % 0.4 % (0.001-0.429); Lymphocyte (Absolute #) 2.24 x10^3/uL (1.32-3.57); Lymphocytes % 27.5 % (21.8-53.1); Mean Corpuscular Hemoglobin 29.7 pg (25.7-32.2); Mean Corpuscular Hgb Concent. 33.3 g/dL (32.3-36.5); Mean Platelet Volume 9.1 fL (9.4-12.4); Monocyte (Absolute #) 0.73 x10^3/uL (0.30-0.82); Monocytes % 8.9 % (5.3-12.2); Neutrophil % 61.8 % (34.0-67.9); Platelet Count 327 x10^3/uL (163-337); Red Blood Count 4.28 x10^6/uL (4.63-6.08); Red Cell Distribution Width 12.6 % (11.6-14.4); White Blood Count 8.2 x10^3/uL (4.23-9.07)
[2024-09-21] MEDS ORDERED: Zofran 4 MG/2 ML VIAL ONE (19:12)
[2024-09-21] MEDS ORDERED: MORPHINE SULFATE 4 MG INJ ONE (19:12)
[2024-09-21] MEDS: Zofran 4 MG/2 ML VIAL IV ONE (19:14)
[2024-09-21] MEDS: MORPHINE SULFATE 4 MG INJ IV ONE (19:14)
[2024-09-21 19:21] LABS: ALBUMIN 4.2 g/dL (3.5-5.0); ALKALINE PHOSPHATASE 74 U/L (38-126); ANION GAP 16.3 MEQ/L (5-15); BLOOD UREA NITROGEN 22 mg/dL (9-20); CHLORIDE 105 mmol/L (98-107); Calcium 9.5 mg/dL (8.4-10.2); Carbon Dioxide 23 mmol/L (22-30); Creatinine 1 1.21 mg/dL (0.66-1.25); Glucose 238 mg/dL (74-106); Potassium 4.2 mmol/L (3.5-5.1); SGOT/AST 25 U/L (17-59); SGPT/ALT 31 U/L (0-50); SODIUM 140 mmol/L (135-145); TROPONIN < 0.012 ng/mL (0.000-0.033); Total Protein 7.5 g/dL (6.3-8.2)
[2024-09-21 19:27] VITALS: RESP 16
[2024-09-21 20:06] VITALS: BP 96/69; PULSE 84; O2SAT 95
--- NOTE | 2024-09-22 08:22 | XRAY ---
Indication: Pain. No known injury. Comparison: None 3 portable views left shoulder demonstrates osteopenia, mild glenohumeral degenerative arthropathy, and tiny acromion bone island. No other bony, articular, or soft tissue abnormalities.
--- NOTE | 2024-09-22 08:25 | XRAY ---
Indication: Shoulder/chest pain. Comparison: August 29, 2018 Portable apical lordotic chest demonstrates stable right midlung calcified granuloma. No focal infiltrate, consolidation, or large effusion. Heart not enlarged again with CABG. Bony thorax intact again with osteopenia and mild degenerative changes. Impression: Continued nonacute chest with chronic features.
== END 2024-09-21 20:15 | disposition home or self-care (01) ==
LOC: ED 17:28
DX: M75.52 Bursitis of left shoulder (principal); M25.512 Pain in left shoulder; R07.9 Chest pain, unspecified; I25.10 Atherosclerotic heart disease of native coronary artery without angina pectoris; E11.9 Type 2 diabetes mellitus without complications; I10 Essential (primary) hypertension; Z85.51 Personal history of malignant neoplasm of bladder; Z79.01 Long term (current) use of anticoagulants; Z95.0 Presence of cardiac pacemaker
CPT/HCPCS: 36415; 71045; 73030; 80053; 83880; 84484; 85025; 93005; 93041; 94760; 96374; 96375; 99284; 99285; J2270; J2405

== ENCOUNTER 2025-08-03 19:48 | Emergency (ER) | payer OTHER ==
[2025-08-03 19:52] VITALS: TEMP 97.8
--- NOTE | 2025-08-03 20:00 | ERPHSYRPT ---
- History of Present Illness Time Seen by Provider: 08/03/25 19:59 Source: patient Exam Limitations: no limitations Allergies/Adverse Reactions: Fish Containing Products Allergy (Severe, Verified 08/03/25 19:53) Shortness of Breath fish protein causes swelling and SOB shellfish derived Allergy (Severe, Verified 08/03/25 19:53) Difficulty Breathing moxifloxacin HCl [From Avelox] Allergy (Intermediate, Verified 08/03/25 19:53) Hives ciprofloxacin [From Cipro] Allergy (Unknown, Verified 08/03/25 19:53) fish oil Allergy (Unknown, Verified 08/03/25 19:53) lithium Allergy (Unknown, Verified 08/03/25 19:53) moxifloxacin [From Avelox] Allergy (Unknown, Verified 08/03/25 19:53) onion Allergy (Unknown, Verified 08/03/25 19:53) Sulfa (Sulfonamide Antibiotics) Allergy (Unknown, Verified 08/03/25 19:53) gentamicin Allergy (Verified 08/03/25 19:53) Home Medications: Oxycodone/APAP 5 mg/325 mg [Percocet Tablet 5/325Mg] 1 tab PO QIDPRN PRN 01/24/18 [History] Ezetimibe 10 mg [Zetia 10 MG] 10 mg PO HS 03/28/18 [History] Ranolazine 500 MG [Ranexa 500 MG] 1,000 mg PO BID 03/28/18 [History] Atorvastatin Calcium [Lipitor] 80 mg PO HS 06/20/18 [History] Clopidogrel Bisulfate [PLAVIX Tablet] 75 mg PO DAILY 08/30/18 [History] Lisinopril 10 mg [Zestril 10 MG] 20 mg PO BID 12/28/23 [History] Amlodipine Besylate 5 mg [Norvasc 5 mg] 5 mg PO DAILY PRN 09/21/24 [History] Diazepam 5 mg [Valium 5 MG] 2.5 mg PO BID 09/21/24 [History] Famotidine 40 mg PO EVENING MEAL 09/21/24 [History] Insulin Degludec [Tresiba Flextouch U-200] 104 units SQ HS 09/21/24 [History] Insulin Lispro [Humalog Kwikpen U-100] 30 unit SQ TID 09/21/24 [History] Isosorbide Mononitrate [Isosorbide Mononitrate ER] 60 mg PO DAILY 09/21/24 [History] PANTOPRAZOLE 40 mg Tablet [Protonix 40MG Tablet] 40 mg PO BID 09/21/24 [History] Hx Tetanus, Diphtheria Vaccination/Date Given: Yes Hx Influenza Vaccination/Date Given: No Hx Pneumococcal Vaccination/Date Given: Yes Travel Risk - Emerging Infectious Disease Are you exhibiting symptoms associated with any current EIDs: No Symptoms: Cough: New Onset, Shortness of Breath - Past Medical History GI Medical History: Diverticulitis, Ulcer, GERD, Pancreatitis, Gallbladder Disease - Past Surgical History Cardiac: CABG, Cardiac Stent, Cardiac Catheterization Musculoskeletal: Orthopedic Surgery, Amputation Significant Family History: no pertinent family hx - Social History Smoking Status: Never smoker - Social Determinants of Health Will the patient participate in the screening: Yes Do you worry about a steady place to live?: No In the past 12 months,have you had to go without utilities?: No Transportation Issues: No Has anyone in your support network made you feel unsafe?: No Have you or anyone in your house had to go w/o enough food: No - Nursing Vital Signs Nursing Vital Signs: Initial Vital Signs Temperature 97.8 F 08/03/25 19:50 Pulse Rate 72 08/03/25 19:50 Respiratory Rate 26 H 08/03/25 19:50 Blood Pressure 144/70 08/03/25 19:50 O2 Sat by Pulse Oximetry 97 08/03/25 19:50 Pain Scale Pain Intensity 5 - Physical Exam SpO2: 97 - Course Nursing assessment & vital signs reviewed: Yes EKG Interpreted by Me: RATE (75), Sinus Rhythm, NORMAL AXIS, NORMAL INTERVALS, Non-specific ST Changes Ordered Tests: Active Orders 24 hr Category Date Time Status TROPONIN Stat Lab 08/03/25 23:30 Completed VBG [VENOUS BLOOD GAS] Stat Lab 08/04/25 00:01 Completed Medication Summary Discontinued Medications Generic Name Dose Route Start Last Admin Trade Name Freq PRN Reason Stop Dose Admin Albuterol/Ipratropium 3 ml 08/03/25 20:05 08/03/25 21:06 Ipratropium/Albuterol Sulfate 3 Ml Ampul.Neb IH 08/03/25 20:06 3 ml STAT ONE Administration Albuterol/Ipratropium Confirm 08/03/25 20:30 Ipratropium/Albuterol Sulfate 3 Ml Ampul.Neb Administered 08/03/25 20:31 Dose 3 ml IH .STK-MED ONE Azithromycin Confirm 08/03/25 21:03 Azithromycin Inj Administered 08/03/25 21:04 Dose 500 mg IV .STK-MED ONE Methylprednisolone Sodium 0 mg 08/03/25 20:05 08/03/25 20:26 Succinate 125 mg/ Sterile IV 08/03/25 20:06 125 mg Water 2 ml STAT ONE Administration Azithromycin 500 mg/ Sodium 250 mls @ 250 mls/hr 08/03/25 20:05 08/03/25 22:09 Chloride IV 08/03/25 21:04 Infused STAT STA Infusion Ceftriaxone Sodium 1 gm in 100 mls @ 200 mls/hr 08/03/25 20:05 08/03/25 21:03 Rocephin 1 Gm / 100 Ml Nacl IV 08/03/25 20:34 Infused STAT ONE Infusion Ceftriaxone Sodium Confirm 08/03/25 20:20 Rocephin 1 Gm / 100 Ml Nacl Administered 08/03/25 20:21 Dose 1 gm in 100 mls @ ud IV .STK-MED ONE Sodium Chloride Confirm 08/03/25 21:03 Sodium Chloride 0.9% 250 Ml Administered 08/03/25 21:04 Dose 250 mls @ ud IV .STK-MED ONE Methylprednisolone Sodium Succinate Confirm 08/03/25 20:20 Methylprednis Sod Succ 125 Mg/2 Ml Vial Administered 08/03/25 20:21 Dose 125 mg .ROUTE .STK-MED ONE Oxycodone/Acetaminophen 1 tab 08/03/25 23:06 08/03/25 23:29 Oxycodone Hcl/Apap 5 Mg/325 Mg Tablet PO 08/03/25 23:07 1 tab STAT STA Administration Oxycodone/Acetaminophen Confirm 08/03/25 23:29 Oxycodone Hcl/Apap 5 Mg/325 Mg Tablet Administered 08/03/25 23:30 Dose 1 tab .ROUTE .STK-MED ONE Sterile Water Confirm 08/03/25 20:20 Water For Injection,Sterile 10 Ml Vial Administered 08/03/25 20:21 Dose 10 ml IJ .STK-MED ONE Lab/Rad Data: Laboratory Result Diagrams 08/03/25 20:10 08/03/25 20:10 Laboratory Results 08/04/25 08/03/25 08/03/25 Range/Units 00:01 23:30 22:18 WBC (4.23-9.07) x10^3/uL RBC (4.63-6.08) x10^6/uL Hgb (13.7-17.5) g/dL Hct (40.1-51.0) % MCV (79.0-92.2) fL MCH (25.7-32.2) pg MCHC (32.3-36.5) g/dL RDW (11.6-14.4) % Plt Count (163-337) x10^3/uL MPV (9.4-12.4) fL Gran % (34.0-67.9) % Immature Gran % (Auto) (0.001-0.429) % Nucleat RBC Rel Count (0.00-0.2) % Eos # (Auto) (0.04-0.54) x10^3/uL Immature Gran # (Auto) (0.001-0.031) x10^3u/L Absolute Lymphs (auto) (1.32-3.57) x10^3/uL Absolute Monos (auto) (0.30-0.82) x10^3/uL Absolute Nucleated RBC (0.00-0.012) x10^3u/L Lymphocytes % (21.8-53.1) % Monocytes % (5.3-12.2) % Eosinophils % (0.8-7.0) % Basophils % (0.2-1.2) % Absolute Granulocytes (1.78-5.38) x10^3/uL Basophils # (0.01-0.08) x10^3/uL D-Dimer (0.0-0.50) mg/L Puncture Site RIGHT RADIAL pCO2 13 L* (35-45) mmHg pO2 115 H (75-100) mmHg pO2/FiO2 Ratio 100.0 % Base Excess -3.1 L (-2.0-2.0) O2 Saturation 83.7 L (94-100) g/dF ABG pH 7.64 H* (7.35-7.45) ABG HCO3 14.0 L* (22-28) ABG O2 Sat (Measured) 99.5 (95-100) % Domo Test YES VBG pH 7.33 (7.32-7.42) VBG pCO2 at Pat Temp 48 (42-55) mm/Hg VBG pO2 at Pat Temp 43 H (25-40) mm/Hg VBG HCO3 25.3 (22-28) meq/L VBG O2 Sat (Janine) 70.0 L (95-100) VBG Base Excess -1.2 (-2.0-2.0) VBG Hemoglobin 14.6 VBG Carboxyhemoglobin 2.1 (0.0-6.9) % T HGB A-a Gradient 18 a/A Ratio 0.86 Hemoglobin 14.7 Carboxyhemoglobin 14.7 H* (0.0-6.9) % THgb Methemoglobin 1.2 L (1.4-1.5) % POC Potassium 4.2 (3.5-5.1) Temperature 37.0 C POC O2 Flow Rate 21 % Sodium (135-145) mmol/L Potassium 3.9 (3.5-5.1) mmol/L Chloride (98-107) mmol/L Carbon Dioxide (22-30) mmol/L Anion Gap (5-15) MEQ/L BUN (9-20) mg/dL Creatinine (0.66-1.25) mg/dL Estimated GFR ML/MIN Glucose (74-106) mg/dL Lactic Acid (0.4-2.0) Calcium (8.4-10.2) mg/dL Magnesium (1.6-2.3) mg/dL Total Bilirubin (0.2-1.3) mg/dL AST (17-59) U/L ALT (0-50) U/L Alkaline Phosphatase (38-126) U/L Troponin I < 0.012 (0.000-0.033) ng/mL NT-Pro-B Natriuret Pep (<300) pg/mL Serum Total Protein (6.3-8.2) g/dL Albumin (3.5-5.0) g/dL Procalcitonin (0.030-0.080) ng/mL 09/08/03/25 08/03/25 Range/Units 20:15 20:15 20:10 WBC (4.23-9.07) x10^3/uL RBC (4.63-6.08) x10^6/uL Hgb (13.7-17.5) g/dL Hct (40.1-51.0) % MCV (79.0-92.2) fL MCH (25.7-32.2) pg MCHC (32.3-36.5) g/dL RDW (11.6-14.4) % Plt Count (163-337) x10^3/uL MPV (9.4-12.4) fL Gran % (34.0-67.9) % Immature Gran % (Auto) (0.001-0.429) % Nucleat RBC Rel Count (0.00-0.2) % Eos # (Auto) (0.04-0.54) x10^3/uL Immature Gran # (Auto) (0.001-0.031) x10^3u/L Absolute Lymphs (auto) (1.32-3.57) x10^3/uL Absolute Monos (auto) (0.30-0.82) x10^3/uL Absolute Nucleated RBC (0.00-0.012) x10^3u/L Lymphocytes % (21.8-53.1) % Monocytes % (5.3-12.2) % Eosinophils % (0.8-7.0) % Basophils % (0.2-1.2) % Absolute Granulocytes (1.78-5.38) x10^3/uL Basophils # (0.01-0.08) x10^3/uL D-Dimer (0.0-0.50) mg/L Puncture Site pCO2 (35-45) mmHg pO2 (75-100) mmHg pO2/FiO2 Ratio 21.0 % Base Excess (-2.0-2.0) O2 Saturation (94-100) g/dF ABG pH (7.35-7.45) ABG HCO3 (22-28) ABG O2 Sat (Measured) (95-100) % Domo Test VBG pH 7.48 H (7.32-7.42) VBG pCO2 at Pat Temp 31 L (42-55) mm/Hg VBG pO2 at Pat Temp 55 H (25-40) mm/Hg VBG HCO3 23.1 (22-28) meq/L VBG O2 Sat (Janine) 92.4 L (95-100) VBG Base Excess 0.4 (-2.0-2.0) VBG Hemoglobin 14.0 VBG Carboxyhemoglobin 15.6 H* (0.0-6.9) % T HGB A-a Gradient a/A Ratio Hemoglobin Carboxyhemoglobin (0.0-6.9) % THgb Methemoglobin (1.4-1.5) % POC Potassium 4.2 (3.5-5.1) Temperature C POC O2 Flow Rate % Sodium (135-145) mmol/L Potassium (3.5-5.1) mmol/L Chloride (98-107) mmol/L Carbon Dioxide (22-30) mmol/L Anion Gap (5-15) MEQ/L BUN (9-20) mg/dL Creatinine (0.66-1.25) mg/dL Estimated GFR ML/MIN Glucose (74-106) mg/dL Lactic Acid 1.5 (0.4-2.0) Calcium (8.4-10.2) mg/dL Magnesium (1.6-2.3) mg/dL Total Bilirubin (0.2-1.3) mg/dL AST (17-59) U/L ALT (0-50) U/L Alkaline Phosphatase (38-126) U/L Troponin I (0.000-0.033) ng/mL NT-Pro-B Natriuret Pep 54.3 (<300) pg/mL Serum Total Protein (6.3-8.2) g/dL Albumin (3.5-5.0) g/dL Procalcitonin 0.043 (0.030-0.080) ng/mL 08/03/25 08/03/25 08/03/25 Range/Units 20:10 20:10 20:10 WBC (4.23-9.07) x10^3/uL RBC (4.63-6.08) x10^6/uL Hgb (13.7-17.5) g/dL Hct (40.1-51.0) % MCV (79.0-92.2) fL MCH (25.7-32.2) pg MCHC (32.3-36.5) g/dL RDW (11.6-14.4) % Plt Count (163-337) x10^3/uL MPV (9.4-12.4) fL Gran % (34.0-67.9) % Immature Gran % (Auto) (0.001-0.429) % Nucleat RBC Rel Count (0.00-0.2) % Eos # (Auto) (0.04-0.54) x10^3/uL Immature Gran # (Auto) (0.001-0.031) x10^3u/L Absolute Lymphs (auto) (1.32-3.57) x10^3/uL Absolute Monos (auto) (0.30-0.82) x10^3/uL Absolute Nucleated RBC (0.00-0.012) x10^3u/L Lymphocytes % (21.8-53.1) % Monocytes % (5.3-12.2) % Eosinophils % (0.8-7.0) % Basophils % (0.2-1.2) % Absolute Granulocytes (1.78-5.38) x10^3/uL Basophils # (0.01-0.08) x10^3/uL D-Dimer 0.49 (0.0-0.50) mg/L Puncture Site pCO2 (35-45) mmHg pO2 (75-100) mmHg pO2/FiO2 Ratio % Base Excess (-2.0-2.0) O2 Saturation (94-100) g/dF ABG pH (7.35-7.45) ABG HCO3 (22-28) ABG O2 Sat (Measured) (95-100) % Domo Test VBG pH (7.32-7.42) VBG pCO2 at Pat Temp (42-55) mm/Hg VBG pO2 at Pat Temp (25-40) mm/Hg VBG HCO3 (22-28) meq/L VBG O2 Sat (Janine) (95-100) VBG Base Excess (-2.0-2.0) VBG Hemoglobin VBG Carboxyhemoglobin (0.0-6.9) % T HGB A-a Gradient a/A Ratio Hemoglobin Carboxyhemoglobin (0.0-6.9) % THgb Methemoglobin (1.4-1.5) % POC Potassium (3.5-5.1) Temperature C POC O2 Flow Rate % Sodium 137 (135-145) mmol/L Potassium 4.0 (3.5-5.1) mmol/L Chloride 104 (98-107) mmol/L Carbon Dioxide 25 (22-30) mmol/L Anion Gap 12.0 (5-15) MEQ/L BUN 18 (9-20) mg/dL Creatinine 1.29 H (0.66-1.25) mg/dL Estimated GFR 63.5 ML/MIN Glucose 235 H (74-106) mg/dL Lactic Acid (0.4-2.0) Calcium 9.2 (8.4-10.2) mg/dL Magnesium 1.7 (1.6-2.3) mg/dL Total Bilirubin 0.20 (0.2-1.3) mg/dL AST 19 (17-59) U/L ALT 26 (0-50) U/L Alkaline Phosphatase 75 (38-126) U/L Troponin I < 0.012 (0.000-0.033) ng/mL NT-Pro-B Natriuret Pep (<300) pg/mL Serum Total Protein 6.7 (6.3-8.2) g/dL Albumin 4.0 (3.5-5.0) g/dL Procalcitonin (0.030-0.080) ng/mL 08/03/25 Range/Units 20:10 WBC 8.9 (4.23-9.07) x10^3/uL RBC 4.25 L (4.63-6.08) x10^6/uL Hgb 12.8 L (13.7-17.5) g/dL Hct 38.7 L (40.1-51.0) % MCV 91.1 (79.0-92.2) fL MCH 30.1 (25.7-32.2) pg MCHC 33.1 (32.3-36.5) g/dL RDW 12.4 (11.6-14.4) % Plt Count 256 (163-337) x10^3/uL MPV 9.3 L (9.4-12.4) fL Gran % 65.4 (34.0-67.9) % Immature Gran % (Auto) 0.5 H (0.001-0.429) % Nucleat RBC Rel Count 0.0 (0.00-0.2) % Eos # (Auto) 0.11 (0.04-0.54) x10^3/uL Immature Gran # (Auto) 0.04 H (0.001-0.031) x10^3u/L Absolute Lymphs (auto) 2.11 (1.32-3.57) x10^3/uL Absolute Monos (auto) 0.78 (0.30-0.82) x10^3/uL Absolute Nucleated RBC 0.00 (0.00-0.012) x10^3u/L Lymphocytes % 23.8 (21.8-53.1) % Monocytes % 8.8 (5.3-12.2) % Eosinophils % 1.2 (0.8-7.0) % Basophils % 0.3 (0.2-1.2) % Absolute Granulocytes 5.78 H (1.78-5.38) x10^3/uL Basophils # 0.03 (0.01-0.08) x10^3/uL D-Dimer (0.0-0.50) mg/L Puncture Site pCO2 (35-45) mmHg pO2 (75-100) mmHg pO2/FiO2 Ratio % Base Excess (-2.0-2.0) O2 Saturation (94-100) g/dF ABG pH (7.35-7.45) ABG HCO3 (22-28) ABG O2 Sat (Measured) (95-100) % Domo Test VBG pH (7.32-7.42) VBG pCO2 at Pat Temp (42-55) mm/Hg VBG pO2 at Pat Temp (25-40) mm/Hg VBG HCO3 (22-28) meq/L VBG O2 Sat (Janine) (95-100) VBG Base Excess (-2.0-2.0) VBG Hemoglobin VBG Carboxyhemoglobin (0.0-6.9) % T HGB A-a Gradient a/A Ratio Hemoglobin Carboxyhemoglobin (0.0-6.9) % THgb Methemoglobin (1.4-1.5) % POC Potassium (3.5-5.1) Temperature C POC O2 Flow Rate % Sodium (135-145) mmol/L Potassium (3.5-5.1) mmol/L Chloride (98-107) mmol/L Carbon Dioxide (22-30) mmol/L Anion Gap (5-15) MEQ/L BUN (9-20) mg/dL Creatinine (0.66-1.25) mg/dL Estimated GFR ML/MIN Glucose (74-106) mg/dL Lactic Acid (0.4-2.0) Calcium (8.4-10.2) mg/dL Magnesium (1.6-2.3) mg/dL Total Bilirubin (0.2-1.3) mg/dL AST (17-59) U/L ALT (0-50) U/L Alkaline Phosphatase (38-126) U/L Troponin I (0.000-0.033) ng/mL NT-Pro-B Natriuret Pep (<300) pg/mL Serum Total Protein (6.3-8.2) g/dL Albumin (3.5-5.0) g/dL Procalcitonin (0.030-0.080) ng/mL - Departure Departure Disposition: Home Clinical Impression: COPD exacerbation, Carbon monoxide poisoning Condition: Stable Critical Care Time: No Referrals: MAGEN WAKEFIELD MD [Primary Care Provider, [facility]] - Follow up/PCP as directed Instructions: Chronic Obstructive Pulmonary Disease Prescriptions: Azithromycin 250 mg PO DAILY #4 tablet predniSONE [Prednisone] 50 mg PO DAILY #4 tablet
[2025-08-03] MEDS ORDERED: ROCEPHIN 1 GM / 100 ML NaCl 1 GM/100 ML IVPB IV ONE (20:20)
[2025-08-03] MEDS ORDERED: Sterile H2O 10 ml IJ ONE (20:20)
[2025-08-03] MEDS: solu-MEDROL 125 MG, Sterile H2O 10 ml 2 ML IV ONE (20:26)
[2025-08-03 20:27] LABS: VBG BASE EXCESS 0.4 (-2.0-2.0); VBG FIO2 21.0 %; VBG HCO3- 23.1 meq/L (22-28); VBG HEMOGLOBIN 14.0; VBG O2 SATURATION 92.4 (95-100); VBG PCO2 31.0 mm/Hg (42-55); VBG PO2 55.0 mm/Hg (25-40); VBG POTASSIUM 4.2 (3.5-5.1)
[2025-08-03 20:28] LABS: VBG CARBOXYHEMOGLOBIN 15.6 % T HGB (0.0-6.9)
[2025-08-03 20:29] LABS: BASOPHIL % 0.3 % (0.2-1.2); Basophil (Absolute #) 0.03 x10^3/uL (0.01-0.08); Eosinophil (Absolute #) 0.11 x10^3/uL (0.04-0.54); Hematocrit 38.7 % (40.1-51.0); Hemoglobin 12.8 g/dL (13.7-17.5); IMMATURE GRAN # 0.04 x10^3u/L (0.001-0.031); IMMATURE GRAN % 0.5 % (0.001-0.429); Lymphocyte (Absolute #) 2.11 x10^3/uL (1.32-3.57); Mean Corpuscular Hemoglobin 30.1 pg (25.7-32.2); Mean Corpuscular Hgb Concent. 33.1 g/dL (32.3-36.5); Monocyte (Absolute #) 0.78 x10^3/uL (0.30-0.82); NUCLEATED RBC # 0.00 x10^3u/L (0.00-0.012); NUCLEATED RBC % 0.0 % (0.00-0.2); Platelet Count 256 x10^3/uL (163-337); Red Blood Count 4.25 x10^6/uL (4.63-6.08); White Blood Count 8.9 x10^3/uL (4.23-9.07)
[2025-08-03] MEDS ORDERED: DUONEB 0.5-3 MG/3 ml Neb IH ONE (20:30)
[2025-08-03] MEDS: ROCEPHIN 1 GM / 100 ML NaCl 1 GM/100 ML IVPB IV ONE (20:33)
[2025-08-03 20:43] LABS: Calcium 9.2 mg/dL (8.4-10.2); Carbon Dioxide 25.0 mmol/L (22-30); Creatinine 1 1.29 mg/dL (0.66-1.25); EST GLOMERULAR FILTRATION RATE 63.5 ML/MIN; Glucose 235.0 mg/dL (74-106); Potassium 4.0 mmol/L (3.5-5.1); SGOT/AST 19.0 U/L (17-59); SGPT/ALT 26.0 U/L (0-50); Total Protein 6.7 g/dL (6.3-8.2)
[2025-08-03 21:00] LABS: NT PRO BNPII 54.3 pg/mL (<300)
[2025-08-03] MEDS ORDERED: ZITHROMAX IV IV ONE (21:03)
[2025-08-03] MEDS: DUONEB 0.5-3 MG/3 ml Neb IH ONE (21:06)
[2025-08-03] MEDS: ZITHROMAX IV*** 500 MG in Sodium Chloride 0.9% 250 ML 250 ML IV STA (21:09)
[2025-08-03 22:19] LABS: A-aADO2 18; ABG HEMOGLOBIN 14.7; ABG POTASSIUM 3.9 (3.5-5.1); ARTERIAL BLD GAS O2 SATURATION 99.5 % (95-100); ARTERIAL BLOOD GAS BASE EXCESS -3.1 (-2.0-2.0); ARTERIAL BLOOD GAS FIO2 21 %; ARTERIAL BLOOD GAS PO2 115 mmHg (75-100); ARTERIAL BLOOD GAS TEMPERATURE 37.0 C; HCO3- 14.0 (22-28); HGB O2 SAT 83.7 g/dF (94-100); Methhemoglobin 1.2 % (1.4-1.5); paO2 pAO1 0.86
[2025-08-03 22:20] LABS: ARTERIAL BLOOD GAS PCO2 13 mmHg (35-45)
[2025-08-03 22:21] LABS: ABG SITE RIGHT RADIAL; ALLEN TEST OK? YES
[2025-08-03] MEDS ORDERED: PERCOCET TABLET 5/325MG ONE (23:29)
[2025-08-03] MEDS: PERCOCET TABLET 5/325MG PO STA (23:29)
[2025-08-04 00:03] LABS: VBG BASE EXCESS -1.2 (-2.0-2.0); VBG CARBOXYHEMOGLOBIN 2.1 % T HGB (0.0-6.9); VBG FIO2 100.0 %; VBG HCO3- 25.3 meq/L (22-28); VBG HEMOGLOBIN 14.6; VBG O2 SATURATION 70.0 (95-100); VBG PCO2 48.0 mm/Hg (42-55); VBG PO2 43.0 mm/Hg (25-40); VBG POTASSIUM 4.2 (3.5-5.1)
[2025-08-04 01:02] VITALS: BP 122/60; PULSE 62; RESP 13
--- NOTE | 2025-08-04 07:49 | XRAY ---
Indication: Chest pain. Comparison: June 20, 2025 Portable chest unchanged again inflated and clear with incidental right upper lobe calcified granuloma. Heart not enlarged again with CABG. Bony thorax intact again with osteopenia and degenerative changes. No new/acute findings.
[2025-08-04 23:48] VITALS: O2SAT 97
== END 2025-08-04 01:10 | disposition home or self-care (01) ==
LOC: ED 19:48
DX: T58.91XA Toxic effect of carbon monoxide from unspecified source, accidental (unintentional), initial encounter (principal); R06.02 Shortness of breath; J44.1 Chronic obstructive pulmonary disease with (acute) exacerbation; Z79.02 Long term (current) use of antithrombotics/antiplatelets; Z79.4 Long term (current) use of insulin; Z79.899 Other long term (current) drug therapy